=== PATIENT | male | born 1960 | race Caucasian/White ===

== ENCOUNTER 2017-05-16 17:01 | Observation (INO) | payer OTHER ==
[2017-05-16] MEDS ORDERED: DUONEB 0.5-3 MG/3 ml Neb IH ONE (17:31)
[2017-05-16] MEDS: Advair Hfa 230/21 Mcg COMMON CANISTER IH SCH (17:43)
[2017-05-16] MEDS: DUONEB 0.5-3 MG/3 ml Neb IH SCH ×2 (17:43→22:36)
[2017-05-16] MEDS ORDERED: NovoLOG Insulin SQ PRN (19:10)
[2017-05-16] MEDS ORDERED: FEVERALL 650 MG PR PRN (19:10)
[2017-05-16 20:14] LABS: Granulocyte Absolute (ANC) 1.95 (1.4-6.9); Hematocrit 47.2 % (42-50); Hemoglobin 15.1 gm/dl (12.5-18.0); Mean Cell Volume 94.4 fl (78-100); Mean Corpuscular Hemoglobin 30.2 pg (26-32); Mean Platelet Volume 11.3 fl (6-9.5); Platelet Count 101 K/mm3 (150-450); Red Cell Distribution Width 13.8 % (11.5-14.0); White Blood Count 3.9 K/mm3 (4.0-10.5)
[2017-05-16 20:33] LABS: ALBUMIN 3.1 g/dL (3.4-5.0); ALKALINE PHOSPHATASE 57 U/L (46-116); ANION GAP 9.8 MEQ/L (5-15); BLOOD UREA NITROGEN 17 mg/dL (9-20); CHLORIDE 103 mEq/L (98-107); Calcium 8.4 mg/dL (8.5-10.1); Carbon Dioxide 31.3 mEq/L (21-32); Creatinine 1 1.16 mg/dl (0.55-1.30); EST GLOMERULAR FILTRATION RATE > 60 ML/MIN; Glucose 135 MG/DL (70-110); NT PRO BNP 1397 pg/ml (0-125); SGOT/AST 28 U/L (15-37); SGPT/ALT 26 U/L (12-78); SODIUM 140 mEq/L (136-145); Total Protein 7.3 gm/dL (6.4-8.2)
[2017-05-16 20:39] LABS: ATYPICAL LYMPHS 1 %; BAND 5 % (0.0-2.0); Lymphocytes 27 % (24-44); Monocyte 10 % (0.0-12.0); Neutrophils 57 % (36.-66.); Platelet Estimate NORMAL (NORMAL); Total Cells Counted 100
[2017-05-16] MEDS: Sodium Chloride 0.9% 1000 ML 1,000 ML IV SCH (20:40)
[2017-05-16] MEDS: Cozaar 50 MG PO SCH (22:30)
[2017-05-16] MEDS: Lopressor 50 MG PO SCH (22:30)
[2017-05-17] MEDS: DUONEB 0.5-3 MG/3 ml Neb IH SCH ×6 (02:53→22:57)
[2017-05-17] MEDS: Sodium Chloride 0.9% 1000 ML 1,000 ML IV SCH (05:46)
[2017-05-17] MEDS: Advair Hfa 230/21 Mcg COMMON CANISTER IH SCH ×2 (06:37→19:03)
--- NOTE | 2017-05-17 08:43 | XRAY ---
Indication: Short of breath. Comparison: June 07, 2014. PA/lateral chest does not completely include both lung bases. No focal infiltrate, consolidation, or large effusion. Heart remains enlarged. Bony thorax intact again with mild osteopenia and degenerative changes. Impression: Nonacute hyperinflated limited chest again with chronic features.
--- NOTE | 2017-05-17 09:11 | PCM.NOTE ---
Date and Time: 05/17/17907 Subjective Assessment: still short of breath - Review of Systems Constitutional: No Fever, No Chills Eyes: No Symptoms Ears, Nose, & Throat: No Symptoms Respiratory: Orthopnea, Short Of Breath, No Cough Cardiac: No Chest Pain, No Edema, No Syncope Abdominal/Gastrointestinal: No Abdominal Pain, No Nausea, No Vomiting, No Diarrhea Genitourinary Symptoms: No Dysuria Musculoskeletal: No Back Pain, No Neck Pain Skin: No Rash Neurological: No Dizziness, No Focal Weakness, No Sensory Changes Psychological: No Symptoms Endocrine: No Symptoms Hematologic/Lymphatic: No Symptoms Immunological/Allergic: No Symptoms Objective Exam General Appearance: mild distress, alert Neurologic Exam: alert, oriented x 3, cooperative, normal mood/affect, nml cerebellar function, sensation nml, No motor deficits Skin Exam: normal color, warm, dry Eye Exam: PERRL, EOMI, eyes nml inspection Ears, Nose, Throat Exam: normal ENT inspection, pharynx normal, moist mucous membranes Neck Exam: normal inspection, non-tender, supple, full range of motion Respiratory Exam: diminished breath sounds, crackles/rales, rhonchi, No respiratory distress Cardiovascular Exam: regular rate/rhythm, normal heart sounds Gastrointestinal/Abdomen Exam: soft, No tenderness, No mass Extremity Exam: normal inspection, normal range of motion Back Exam: normal inspection, normal range of motion, No CVA tenderness, No vertebral tenderness Male Genitalia Exam: deferred Rectal Exam: deferred OBJECTIVE DATA Vital Signs: Vital Signs - 24 hr Temp Pulse Resp BP Pulse Ox 05/17/17 07:32 98 F 122 H 22 110/70 97 05/17/17 06:35 130 H 26 H 97 05/17/17 06:00 22 05/17/17 04:00 97.7 F 98 H 23 106/83 94 L 05/17/17 02:53 98 H 23 94 L 05/17/17 02:00 20 05/17/17 00:00 98.3 F 79 28 H 130/78 94 L 05/16/17 22:36 99 H 18 96 05/16/17 22:00 24 05/16/17 20:00 98.0 F 72 28 H 142/89 97 05/16/17 18:21 26 H 05/16/17 17:54 97.7 F 104 H 26 H 161/118 94 L 05/16/17 17:44 104 H 26 H 94 L 05/16/17 17:37 97.7 F 106 H 24 161/118 94 L Oxygen-Last 24 hours O2 Percentage 2 Liters = 28% O2 Percentage 2 Liters = 28% Pain Assessment - Last Documented Pain Intensity 0 Pain Scale Used 0-10 Pain Scale Intake and Output: Intake & Output 05/14/17 05/15/17 05/16/17 05/17/17 11:59 11:59 11:59 11:59 Intake Total 2601 Balance 2601 Weight 176.6 kg Lab Results: Accuchecks Date 05/15/17 Time 22:00 Accucheck Value: 120 Lab Results-Last 24 Hours 05/16/17 05/16/17 Range/Units 19:51 19:51 WBC 3.9 L (4.0-10.5) K/mm3 RBC 5.00 (4.1-5.6) M/mm3 Hgb 15.1 (12.5-18.0) gm/dl Hct 47.2 (42-50) % MCV 94.4 (78-100) fl MCH 30.2 (26-32) pg MCHC 32.0 (32-36) g/dl RDW 13.8 (11.5-14.0) % Plt Count 101 L (150-450) K/mm3 MPV 11.3 H (6-9.5) fl Segmented Neutrophils 57 (36.-66.) % Band Neutrophils 5 H (0.0-2.0) % Lymphocytes (Manual) 27 (24-44) % Monocytes (Manual) 10 (0.0-12.0) % Differential Comment NORMAL Atypical Lymphocytes 1 % Platelet Estimate NORMAL (NORMAL) Sodium 140 (136-145) mEq/L Potassium 4.0 (3.5-5.1) mEq/L Chloride 103 (98-107) mEq/L Carbon Dioxide 31.3 (21-32) mEq/L Anion Gap 9.8 (5-15) MEQ/L BUN 17 (9-20) mg/dL Creatinine 1.16 (0.55-1.30) mg/dl Estimated GFR > 60 ML/MIN Glucose 135 H (70-110) MG/DL Calcium 8.4 L (8.5-10.1) mg/dL Total Bilirubin 0.40 (0.2-1.0) mg/dL AST 28 (15-37) U/L ALT 26 (12-78) U/L Alkaline Phosphatase 57 (46-116) U/L NT-Pro-B Natriuret Pep 1397 H (0-125) pg/ml Serum Total Protein 7.3 (6.4-8.2) gm/dL Albumin 3.1 L (3.4-5.0) g/dL Radiology Exams: Radiology Procedures Category Date Time Status CHEST 2 VIEWS (PA AND LAT) Stat Exams 05/16/17 19:25 Completed Assessment/Plan (1) CHF (congestive heart failure) Current Visit: Yes Status: Acute Qualifiers: Congestive heart failure type: combined Congestive heart failure chronicity : acute on chronic Qualified Code(s): I50.43 - Acute on chronic combined systolic (congestive) and diastolic (congestive) heart failure Code(s): I50.9 - HEART FAILURE, UNSPECIFIED (2) COPD (chronic obstructive pulmonary disease) Current Visit: Yes Status: Acute Qualifiers: COPD type: COPD with acute exacerbation Qualified Code(s): J44.1 - Chronic obstructive pulmonary disease with (acute) exacerbation
[2017-05-17] MEDS: DEMADEX 20 MG PO SCH (09:19)
[2017-05-17] MEDS: XARELTO 10 MG TABLET PO SCH (09:19)
[2017-05-17] MEDS: Cozaar 50 MG PO SCH ×2 (09:20→23:17)
[2017-05-17] MEDS: Lopressor 50 MG PO SCH ×2 (09:20→23:17)
[2017-05-17] MEDS ORDERED: Sodium Chloride 0.9% 1000 ML 1,000 ML IV SCH (11:15)
[2017-05-18] MEDS: DUONEB 0.5-3 MG/3 ml Neb IH SCH ×3 (03:18→10:14)
[2017-05-18] MEDS: Advair Hfa 230/21 Mcg COMMON CANISTER IH SCH (06:45)
[2017-05-18] MEDS: XARELTO 10 MG TABLET PO SCH (11:08)
[2017-05-18] MEDS: Lopressor 50 MG PO SCH (11:08)
[2017-05-18] MEDS: DEMADEX 20 MG PO SCH (11:09)
[2017-05-18] MEDS: Cozaar 50 MG PO SCH (11:09)
[2017-05-18 11:22] VITALS: BP 122/68; PULSE 135; O2SAT 92
--- NOTE | 2017-05-18 12:15 | PCM.NOTE ---
Date and Time: 05/18/17 1215 Subjective Assessment: doing better - Review of Systems Constitutional: No Fever, No Chills Eyes: No Symptoms Ears, Nose, & Throat: No Symptoms Respiratory: No Cough, No Short Of Breath Cardiac: No Chest Pain, No Edema, No Syncope Abdominal/Gastrointestinal: No Abdominal Pain, No Nausea, No Vomiting, No Diarrhea Genitourinary Symptoms: No Dysuria Musculoskeletal: No Back Pain, No Neck Pain Skin: No Rash Neurological: No Dizziness, No Focal Weakness, No Sensory Changes Psychological: No Symptoms Endocrine: No Symptoms Hematologic/Lymphatic: No Symptoms Immunological/Allergic: No Symptoms Objective Exam General Appearance: no apparent distress, alert Neurologic Exam: alert, oriented x 3, cooperative, normal mood/affect, nml cerebellar function, sensation nml, No motor deficits Skin Exam: normal color, warm, dry Eye Exam: PERRL, EOMI, eyes nml inspection Ears, Nose, Throat Exam: normal ENT inspection, pharynx normal, moist mucous membranes Neck Exam: normal inspection, non-tender, supple, full range of motion Respiratory Exam: diminished breath sounds, No respiratory distress Cardiovascular Exam: regular rate/rhythm, normal heart sounds Gastrointestinal/Abdomen Exam: soft, No tenderness, No mass Extremity Exam: normal inspection, normal range of motion Back Exam: normal inspection, normal range of motion, No CVA tenderness, No vertebral tenderness Male Genitalia Exam: deferred Rectal Exam: deferred OBJECTIVE DATA Vital Signs: Vital Signs - 24 hr Temp Pulse Resp BP Pulse Ox 05/18/17 11:21 98.5 F 135 H 20 122/68 92 L 05/18/17 10:17 120 H 18 95 05/18/17 10:00 20 05/18/17 07:19 97.9 F 125 H 20 128/68 92 L 05/18/17 06:48 68 18 95 05/18/17 06:00 20 05/18/17 03:43 98.2 F 128 H 20 120/70 94 L 05/18/17 03:18 128 H 20 94 L 05/18/17 02:00 18 05/18/17 00:00 98.2 F 114 H 18 132/73 96 05/17/17 22:57 114 H 18 96 05/17/17 22:00 18 05/17/17 20:00 98.3 F 104 H 28 H 128/94 91 L 05/17/17 19:02 108 H 18 96 05/17/17 18:00 18 05/17/17 16:07 97.8 F 85 22 140/64 93 L 05/17/17 15:00 103 H 20 93 L 05/17/17 13:34 30 H Pain Assessment - Last Documented Pain Intensity 0 Pain Scale Used 0-10 Pain Scale Intake and Output: Intake & Output 05/16/17 05/17/17 05/18/17 05/19/17 11:59 11:59 11:59 11:59 Intake Total 2961 4852 Output Total 400 600 Balance 2561 4252 Weight 176.6 kg Lab Results: Accuchecks Date 05/18/17 Date 05/18/17 Date 05/17/17 Time 08:15 Time 22:00 Time 16:30 Accucheck Value: 93 Accucheck Value: 109 Accucheck Value: 98 Radiology Exams: Radiology Procedures Category Date Time Status CHEST 2 VIEWS (PA AND LAT) Stat Exams 05/16/17 19:25 Completed ECHO W/2D AND DOPPLER [US] Routine Exams 05/17/17 11:12 Taken Assessment/Plan (1) CHF (congestive heart failure) Current Visit: Yes Status: Acute Qualifiers: Congestive heart failure type: combined Congestive heart failure chronicity : acute on chronic Qualified Code(s): I50.43 - Acute on chronic combined systolic (congestive) and diastolic (congestive) heart failure Code(s): I50.9 - HEART FAILURE, UNSPECIFIED (2) COPD (chronic obstructive pulmonary disease) Current Visit: Yes Status: Acute Qualifiers: COPD type: COPD with acute exacerbation Qualified Code(s): J44.1 - Chronic obstructive pulmonary disease with (acute) exacerbation
--- NOTE | 2017-05-18 12:27 | PCM.DCORD ---
- Discharge Discharge Date: 05/18/17 Disposition: Home, Self-Care Condition: Stable Prescriptions: Continue Rivaroxaban 10 mg Tablet [Xarelto 10 mg Tablet] 15 mg PO DAILY Metoprolol Tartrate 50 mg [Lopressor 50 MG] 50 mg PO BID Losartan Potassium 50 mg [Cozaar 50 MG] 50 mg PO BID Budesonide/Formoterol Fumarate [Symbicort 160-4.5 Mcg Inhaler] 6 gm IH BID Changed Torsemide 20 mg [Demadex 20 mg] 40 mg PO DAILY #0 Follow up with: MIHIR PALACIOS MD [Primary Care Provider] - 1 Week
--- NOTE | 2017-05-20 13:24 | ECHO ---
DATE OF PROCEDURE: 05/17/2017 CLINICAL INFORMATION: Congestive heart failure, shortness of breath. The M-mode 2D, and Doppler echocardiogram including color flow Doppler is a technically difficult study. The left ventricle is normal in size with a dimension of 1.2 cm. The septal wall thickness is increased at 2.2 cm. Left ventricular posterior wall thickness is increased at 1.7 cm. The left ventricular apex is not well visualized. The right ventricle is not well visualized. The left atrium is dilated at 4.6 cm. The interatrial septum is intact. The right atrium is not well visualized. The aortic valve is calcified. Leaflet motion is decreased. There is probably some element of stenosis. There is a trace amount of mitral regurgitation present. There is mild tricuspid regurgitation. The right ventricular systolic pressure is elevated at 37 mm of Mercury consistent with mild pulmonary hypertension. There is evidence of probable trace amount of aortic regurgitation present. The pulmonic valve is not well visualized. The aortic root is normal at 3.4 cm. There is no pericardial present. IMPRESSION: 1) LOW NORMAL LEFT VENTRICULAR SYSTOLIC FUNCTION WITH AN EJECTION FRACTION CALCULATED TO BE 52%. 2) THERE IS SEVERE ASYMMETRIC LEFT VENTRICULAR HYPERTROPHY. 3) THERE IS MILD LEFT ATRIAL DILATATION. 4) THERE IS AORTIC VALVULAR CALCIFICATION WITH SOME DEGREE OF STENOSIS. 5) TRACE AMOUNT OF MITRAL REGURGITATION PRESENT. 6) THERE IS MILD TRICUSPID REGURGITATION. 7) THERE IS MILD PULMONARY HYPERTENSION.
== END 2017-05-18 13:35 | disposition home or self-care (01) ==
LOC: MED SURG 17:17
PROVIDERS: ADMIT General Practice; ATTEND General Practice
DX: I50.43 Acute on chronic combined systolic (congestive) and diastolic (congestive) heart failure (principal); J44.1 Chronic obstructive pulmonary disease with (acute) exacerbation
CPT/HCPCS: 36415; 71046; 80053; 82962; 83880; 85025; 93005; 93306; 94640; 94760; G0378; A9270-GY

== ENCOUNTER 2017-12-20 11:18 | Observation (INO) | payer OTHER ==
[2017-12-20] MEDS ORDERED: Colace 100 MG PO PRN (11:52)
[2017-12-20] MEDS ORDERED: TYLENOL 325 MG PO PRN (11:52)
[2017-12-20] MEDS ORDERED: Sodium Chloride 0.9% 1000 ML 1,000 ML IV SCH (12:00)
[2017-12-20] MEDS: DUONEB 0.5-3 MG/3 ml Neb IH SCH ×2 (12:27→19:16)
[2017-12-20] MEDS: ROCEPHIN 1 Gm-D5w 50 ml Bag** 1 G/50 ML IVPB IV SCH (12:53)
[2017-12-20] MEDS ORDERED: ENOXAPARIN SODIUM SQ SCH (13:00)
[2017-12-20 13:04] LABS: BASOPHIL % 0.3 % (0.0-0.4); Basophil (Absolute #) 0.02 (0-0.4); Eosinophil (Absolute #) 0.06 (0-0.5); Hematocrit 44.7 % (42-50); Hemoglobin 14.5 gm/dl (12.5-18.0); Lymphocyte (Absolute #) 1.25 (1.0-4.6); Lymphocytes % 21.6 % (24.0-44.0); Mean Cell Volume 94.1 fl (78-100); Mean Corpuscular Hemoglobin 30.5 pg (26-32); Mean Corpuscular Hgb Concent. 32.4 g/dl (32-36); Monocyte (Absolute #) 0.76 (0.0-1.3); Monocytes % 13.1 % (0.0-12.0); Platelet Count 136 K/mm3 (150-450); Red Blood Count 4.75 M/mm3 (4.1-5.6); Red Cell Distribution Width 16.6 % (11.5-14.0); White Blood Count 5.8 K/mm3 (4.0-10.5)
--- NOTE | 2017-12-20 13:11 | XRAY ---
Indication: Short of breath. Comparison: May 16, 2017. PA/lateral chest obtained. Lateral view limited due to patient body habitus and respiration artifact. No focal infiltrate, consolidation, or large effusion. Heart remains enlarged. Bony thorax intact. Impression: Nonacute limited chest with stable cardiomegaly.
[2017-12-20 13:42] LABS: ALBUMIN 3.7 g/dL (3.5-5.0); ANION GAP 14.3 MEQ/L (5-15); BILIRUBIN,TOTAL 1.3 mg/dL (0.2-1.3); Calcium 8.5 mg/dL (8.4-10.2); Creatinine 1 1.68 mg/dL (0.66-1.25); Potassium 3.9 mmol/L (3.5-5.1); TROPONIN 0.022 ng/mL (0.000-0.034); Total Protein 7.1 g/dL (6.3-8.2)
[2017-12-20] MEDS: Zithromax 500 MG/ 250 ML NaCl Premix 500 MG/250 ML IVPB IV SCH (13:44)
[2017-12-20] MEDS: XARELTO 10 MG TABLET PO SCH ×2 (18:51→18:55)
[2017-12-20] MEDS: Lopressor 50 MG PO SCH (22:57)
[2017-12-20] MEDS: Cozaar 50 MG PO SCH (22:57)
[2017-12-21] MEDS: DUONEB 0.5-3 MG/3 ml Neb IH SCH ×4 (01:02→19:25)
[2017-12-21] MEDS: ROCEPHIN 1 Gm-D5w 50 ml Bag** 1 G/50 ML IVPB IV SCH (09:09)
[2017-12-21] MEDS: Zithromax 500 MG/ 250 ML NaCl Premix 500 MG/250 ML IVPB IV SCH (09:09)
[2017-12-21] MEDS: Cozaar 50 MG PO SCH ×2 (09:10→22:21)
[2017-12-21] MEDS: Lopressor 50 MG PO SCH ×2 (09:10→22:21)
[2017-12-21] MEDS ORDERED: DEMADEX 20 MG PO SCH (10:00)
--- NOTE | 2017-12-21 11:23 | PCM.NOTE ---
Date and Time: 12/21/17 1122 Subjective Assessment: doing ok - Review of Systems Constitutional: No Fever, No Chills Eyes: No Symptoms Ears, Nose, & Throat: No Symptoms Respiratory: No Cough, No Short Of Breath Cardiac: No Chest Pain, No Edema, No Syncope Abdominal/Gastrointestinal: No Abdominal Pain, No Nausea, No Vomiting, No Diarrhea Genitourinary Symptoms: No Dysuria Musculoskeletal: No Back Pain, No Neck Pain Skin: No Rash Neurological: No Dizziness, No Focal Weakness, No Sensory Changes Psychological: No Symptoms Endocrine: No Symptoms Hematologic/Lymphatic: No Symptoms Immunological/Allergic: No Symptoms Objective Exam General Appearance: no apparent distress, alert Neurologic Exam: alert, oriented x 3, cooperative, normal mood/affect, nml cerebellar function, sensation nml, No motor deficits Skin Exam: normal color, warm, dry Eye Exam: PERRL, EOMI, eyes nml inspection Ears, Nose, Throat Exam: normal ENT inspection, pharynx normal, moist mucous membranes Neck Exam: normal inspection, non-tender, supple, full range of motion Respiratory Exam: normal breath sounds, lungs clear, No respiratory distress Cardiovascular Exam: regular rate/rhythm, normal heart sounds Gastrointestinal/Abdomen Exam: soft, No tenderness, No mass Extremity Exam: normal inspection, normal range of motion Back Exam: normal inspection, normal range of motion, No CVA tenderness, No vertebral tenderness Male Genitalia Exam: deferred Rectal Exam: deferred OBJECTIVE DATA Vital Signs: Vital Signs - 24 hr Temp Pulse Resp BP Pulse Ox 12/21/17 07:22 98.2 F 79 18 112/74 97 12/21/17 06:58 86 20 95 12/21/17 04:00 97.9 F 75 19 100/55 93 L 12/21/17 01:02 70 20 98 12/21/17 00:00 98.6 F 91 H 19 115/71 96 12/20/17 20:00 98.0 F 87 19 116/65 96 12/20/17 19:24 82 20 98 12/20/17 16:00 98.5 F 83 18 126/72 95 12/20/17 13:03 98.5 F 89 22 123/67 95 12/20/17 12:27 89 22 95 12/20/17 11:54 98.5 F 95 H 18 123/67 95 12/20/17 11:53 98.5 F 95 H 18 123/67 95 12/20/17 11:52 95 Oxygen-Last 24 hours Oxygen Flowrate (L/min)-RT 2 Pain Assessment - Last Documented Pain Intensity [address] [facility] Intake and Output: Intake & Output 12/18/17 12/19/17 12/20/17 12/21/17 11:59 11:59 11:59 11:59 Intake Total 1905 Output Total 400 Balance 1505 Weight 199.9 kg 189.9 kg Lab Results: Lab Results-Last 24 Hours 12/20/17 12/20/17 Range/Units 13:00 13:00 WBC 5.8 (4.0-10.5) K/mm3 RBC 4.75 (4.1-5.6) M/mm3 Hgb 14.5 (12.5-18.0) gm/dl Hct 44.7 (42-50) % MCV 94.1 (78-100) fl MCH 30.5 (26-32) pg MCHC 32.4 (32-36) g/dl RDW 16.6 H (11.5-14.0) % Plt Count 136 L (150-450) K/mm3 MPV 11.0 H (6-9.5) fl Gran % 64.0 (36.0-66.0) % Eos # (Auto) 0.06 (0-0.5) Absolute Lymphs (auto) 1.25 (1.0-4.6) Absolute Monos (auto) 0.76 (0.0-1.3) Lymphocytes % 21.6 L (24.0-44.0) % Monocytes % 13.1 H (0.0-12.0) % Eosinophils % 1.0 (0.00-5.0) % Basophils % 0.3 (0.0-0.4) % Absolute Granulocytes 3.70 (1.4-6.9) Basophils # 0.02 (0-0.4) Sodium 140 (137-145) mmol/L Potassium 3.9 (3.5-5.1) mmol/L Chloride 102 (98-107) mmol/L Carbon Dioxide 27 (22-30) mmol/L Anion Gap 14.3 (5-15) MEQ/L BUN 36 H (9-20) mg/dL Creatinine 1.68 H (0.66-1.25) mg/dL Estimated GFR 44.7 ML/MIN Glucose 111 H (74-106) mg/dL Calcium 8.5 (8.4-10.2) mg/dL Total Bilirubin 1.30 (0.2-1.3) mg/dL AST 24 (17-59) U/L ALT 19 (0-50) U/L Alkaline Phosphatase 64 (38-126) U/L Troponin I 0.022 (0.000-0.034) ng/mL NT-Pro-B Natriuret Pep 2020 H (0-900) pg/mL Serum Total Protein 7.1 (6.3-8.2) g/dL Albumin 3.7 (3.5-5.0) g/dL Radiology Exams: Radiology Procedures Category Date Time Status CHEST 2 VIEWS (PA AND LAT) Stat Exams 12/20/17 12:21 Completed ECHO W/2D AND DOPPLER [US] Routine Exams 12/20/17 11:52 Taken Multi-Disciplinary Progress Notes: Multi-Disciplinary Progress Notes 12/20/17 13:05 Case Management Note by Mendy Gibbs OBTAINED FOR ECHO FOR CHF AUTH # [id number] Initialized on 12/20/17 13:05 - END OF NOTE Assessment/Plan (1) CHF (congestive heart failure) Current Visit: Yes Status: Acute Onset Date: ~12/20/17 Qualifiers: Heart failure type: combined systolic and diastolic Heart failure chronicity: acute on chronic Qualified Code(s): I50.43 - Acute on chronic combined systolic (congestive) and diastolic (congestive) heart failure Code(s): I50.9 - HEART FAILURE, UNSPECIFIED (2) COPD exacerbation Current Visit: Yes Status: Acute Onset Date: ~12/20/17 Code(s): J44.1 - CHRONIC OBSTRUCTIVE PULMONARY DISEASE W (ACUTE) EXACERBATION (3) COPD (chronic obstructive pulmonary disease) Current Visit: No Status: Acute Qualifiers: (4) Super obesity Current Visit: No Status: Chronic Onset Date: ~12/20/17 Code(s): E66.9 - OBESITY, UNSPECIFIED
[2017-12-21] MEDS: XARELTO 10 MG TABLET PO SCH (17:41)
[2017-12-22] MEDS: DUONEB 0.5-3 MG/3 ml Neb IH SCH ×4 (00:42→19:28)
[2017-12-22] MEDS: BUMEX 1 MG IV SCH ×2 (09:55→22:29)
[2017-12-22] MEDS: Lopressor 50 MG PO SCH ×2 (09:55→22:29)
[2017-12-22] MEDS: Cozaar 50 MG PO SCH ×2 (09:55→22:29)
[2017-12-22] MEDS: ROCEPHIN 1 Gm-D5w 50 ml Bag** 1 G/50 ML IVPB IV SCH (09:55)
[2017-12-22] MEDS: Zithromax 500 MG/ 250 ML NaCl Premix 500 MG/250 ML IVPB IV SCH (09:55)
--- NOTE | 2017-12-22 11:48 | CONS ---
CONSULT DATE: 12/22/2017 REASON FOR CONSULTATION: Evaluation of shortness of breath, possible sleep apnea, nocturnal saturation. HISTORY: Kaz Alvarez is a 57 year-old morbidly obese male who has been admitted with leg swelling and reduced effort tolerance. The patient reports that he had been diagnosed with sleep apnea in 2014. It is unclear if the patient has trouble using CPAP. However last night he was given a trial of Maria full-face mask that he tolerated very well. The patient's overnight pulse oximetry did show significant desaturation of 45 minutes below 90%. The patient has symptoms suggestive of obstructive sleep apnea. He has orthopnea as well. The patient also reports underlying history of obstructive sleep apnea and cor pulmonale. He has been on diuretic therapy. PAST MEDICAL HISTORY: Positive for chronic obstructive pulmonary disease, obesity, hypertension, cor pulmonale. PAST SURGICAL HISTORY: No recent surgery. PERSONAL AND SOCIAL HISTORY: A former smoker. MEDICATIONS: Medications are reviewed. ALLERGIES: PENICILLIN. ALLERGIES NOTED. PHYSICAL EXAMINATION: This is a middle aged male who appears comfortable in a chair. Vital signs are noted. HEENT: Normocephalic. Oral exam shows very small oropharynx. NECK: Short and supple. CVS: First and second heart sounds are normal, regular, rhythmic. RESPIRATORY: Shows diminished breath sounds. Clear to auscultation. ABDOMEN: Obese. EXTREMITIES: Lower extremities show 3+ leg edema. LABORATORY DATA AND TESTS: Labs reviewed. BUN 36, creatinine 1.7. BNP 2020. Chest x-ray showed nonacute chest with cardiomegaly. Echo was done and results are pending. ASSESSMENT: This is a 57 year old male admitted with symptoms strongly suggestive of: 1) Underlying obstructive sleep apnea. 2) Nocturnal desaturation secondary to above. 3) Likely cor pulmonale and echo awaited. 4) Total body water excess. 5) Renal insufficiency. 6) Morbid obesity. 7) Hypertension. RECOMMENDATIONS: I agree with current treatment, continue Bumex. I will hold off on Zaroxolyn given creatinine of 1.6. Monitor intake and output strictly with maintaining at least 500 to 1,000 cc of negative output. Continue anticoagulation which will also protect for deep venous thrombosis given the patient's body habitus and reduced mobility. He will benefit from polysomnography and noninvasive ventilation upon discharge. I discussed with respiratory therapy to arrange further follow up after polysomnography in outpatient setting. Thank you for allowing me to participate in the care of Kaz Shay.
--- NOTE | 2017-12-22 15:29 | ECHO ---
Transthoracic echocardiographic examination and color Doppler was done on 12/20/2017. INDICATION: Shortness of breath. The study was somewhat limited because of a limited acoustic window. The left ventricle was only partially visualized but this demonstrated moderate left ventricular hypokinesia. Ejection fraction is calculated to be 30-40%. The left atrium appears to be enlarged. The aortic valve and mitral valve were both sclerotic. There is a peak systolic gradient of 35 mm of Mercury across the aortic valve. There is also trace mitral regurgitation. There is trace tricuspid regurgitation. The right ventricular systolic pressure of 20 mm of Mercury. Tissue Doppler study is suggestive of a left ventricular diastolic dysfunction.
[2017-12-22] MEDS: XARELTO 10 MG TABLET PO SCH (17:39)
--- NOTE | 2017-12-22 21:34 | PCM.NOTE ---
Date and Time: 12/22/172131 Subjective Assessment: still very short of breath, pulmonary consult appreciated - Review of Systems Constitutional: No Fever, No Chills Eyes: No Symptoms Ears, Nose, & Throat: No Symptoms Respiratory: Orthopnea, Short Of Breath, Wheezing, No Cough Cardiac: Edema, Orthopnea, No Chest Pain, No Syncope Abdominal/Gastrointestinal: No Abdominal Pain, No Nausea, No Vomiting, No Diarrhea Genitourinary Symptoms: No Dysuria Musculoskeletal: No Back Pain, No Neck Pain Skin: No Rash Neurological: No Dizziness, No Focal Weakness, No Sensory Changes Psychological: No Symptoms Endocrine: No Symptoms Hematologic/Lymphatic: No Symptoms Immunological/Allergic: No Symptoms Objective Exam General Appearance: no apparent distress, alert Neurologic Exam: alert, oriented x 3, cooperative, normal mood/affect, nml cerebellar function, sensation nml, No motor deficits Skin Exam: normal color, warm, dry Eye Exam: PERRL, EOMI, eyes nml inspection Ears, Nose, Throat Exam: normal ENT inspection, pharynx normal, moist mucous membranes Neck Exam: normal inspection, non-tender, supple, full range of motion Respiratory Exam: crackles/rales, rhonchi, No respiratory distress Cardiovascular Exam: regular rate/rhythm, normal heart sounds, capillary refill >3 sec, edema Gastrointestinal/Abdomen Exam: soft, No tenderness, No mass Extremity Exam: normal inspection, normal range of motion Back Exam: normal inspection, normal range of motion, No CVA tenderness, No vertebral tenderness Male Genitalia Exam: deferred Rectal Exam: deferred OBJECTIVE DATA Vital Signs: Vital Signs - 24 hr Temp Pulse Resp BP Pulse Ox 12/22/17 21:30 91 H 22 97 12/22/17 20:00 98.4 F 90 20 114/67 96 12/22/17 16:00 98.6 F 92 H 20 112/60 97 12/22/17 13:53 84 20 94 L 12/22/17 12:00 20 12/22/17 11:32 98.8 F 84 20 92/65 93 L 12/22/17 08:00 20 12/22/17 07:23 98.6 F 81 20 110/62 99 12/22/17 06:58 84 20 91 L 12/22/17 04:00 16 12/22/17 03:37 98.0 F 88 16 108/80 97 12/22/17 00:42 80 20 95 12/22/17 00:00 97.5 F 94 H 20 118/82 95 Pain Assessment - Last Documented Pain Intensity 3 Pain Scale Used 0-10 Pain Scale Intake and Output: Intake & Output 12/20/17 12/21/17 12/22/17 12/23/17 11:59 11:59 11:59 11:59 Intake Total 1905 2332 960 Output Total 400 3050 400 Balance 1505 -718 560 Weight 199.9 kg 189.9 kg 189.6 kg Multi-Disciplinary Progress Notes: Multi-Disciplinary Progress Notes 12/22/17 12:20 (created 12/22/17 15:09) Case Management Note by Elma Smalls DR. ROUNDED AND EVALUATED, DISCUSSED DX/TREATMENT WITH PT. PT VERBALIZED UNDERSTANDING AND ABLE TO REPEAT INFORMATION BACK. DR. PALACIOS REPORTS THAT PT WILL LIKELY REQUIRE ANOTHER 1-2 DAYS TREATMENT. PT DENIES ADDNL NEEDS AT PRESENT. REPORTS THAT HE PLANS TO RETURN HOME WITH TO PRE EPISODIC LEVEL OF FNX. Initialized on 12/22/17 15:09 - END OF NOTE 12/22/17 09:50 (created 12/22/17 15:07) Case Management Note by Elma Smalls DR. ROUNDED AND EVALUATED. DISCUSSED TREATMENT PLAN WITH PT. Initialized on 12/22/17 15:07 - END OF NOTE Assessment/Plan (1) CHF (congestive heart failure) Current Visit: Yes Status: Acute Onset Date: ~12/20/17 Qualifiers: Heart failure type: combined systolic and diastolic Heart failure chronicity: acute on chronic Qualified Code(s): I50.43 - Acute on chronic combined systolic (congestive) and diastolic (congestive) heart failure Assessment & Plan: Chief Complaint Diagnosis EXAC COPD, EXAC CHF, FAILED OUTPATIENT Allergies Allergy/AdvReac Type Severity Reaction Status Date / Time Penicillins Allergy Verified 12/20/17 12:34 Vital Signs (Last 24 hours) Temp Pulse Resp BP Pulse Ox 12/22/17 21:30 91 H 22 97 12/22/17 20:00 98.4 F 90 20 114/67 96 12/22/17 16:00 98.6 F 92 H 20 112/60 97 12/22/17 13:53 84 20 94 L 12/22/17 12:00 20 12/22/17 11:32 98.8 F 84 20 92/65 93 L 12/22/17 08:00 20 12/22/17 07:23 98.6 F 81 20 110/62 99 12/22/17 06:58 84 20 91 L 12/22/17 04:00 16 12/22/17 03:37 98.0 F 88 16 108/80 97 12/22/17 00:42 80 20 95 12/22/17 00:00 97.5 F 94 H 20 118/82 95 Home Medications Medication Instructions Recorded Confirmed Last Taken Type Albuterol 2.5 mg/3 ml Neb 1 neb IH Q4HPRN PRN 12/20/17 12/20/17 Unknown History [Proventil 2.5 mg/3 ml Neb] Current Medications Generic Name Dose Route Start Last Admin Trade Name Freq PRN Reason Stop Dose Admin Acetaminophen 325 mg 12/20/17 11:52 Tylenol 325 Mg PO 01/19/18 11:51 Q4H PRN PRN PAIN, FEVER, HEADACHE Albuterol/Ipratropium 3 ml 12/20/17 13:00 12/22/17 19:28 Duoneb 0.5-3 Mg/3 Ml Neb IH 01/19/18 12:59 3 ml Q6HRT CONY Administration Bumetanide 1 mg 12/22/17 10:00 12/22/17 09:55 Bumex 1 Mg IV 01/21/18 09:59 1 mg Q12HT CONY Administration Docusate Sodium 100 mg 12/20/17 11:52 Colace 100 Mg PO 01/19/18 11:51 BIDPRN PRN CONSTIPATION Azithromycin 500 mg in 250 mls @ 250 mls/hr 12/20/17 13:00 12/22/17 09:55 Zithromax 500 Mg/ 250 Ml Nacl Premix IV 01/19/18 12:59 250 mls/hr Q24H10 CONY Administration Ceftriaxone Sodium/Dextrose 1 g in 50 mls @ 100 mls/hr 12/20/17 13:00 09:55 Rocephin 1 Gm-D5w 50 Ml Bag IV 01/19/18 12:59 100 mls/hr Q24H10 CONY Administration Losartan Potassium 50 mg 12/20/17 22:00 12/22/17 09:55 Cozaar 50 Mg PO 01/19/18 21:59 50 mg BID CONY Administration Metoprolol Tartrate 50 mg 12/20/17 22:00 12/22/17 09:55 Lopressor 50 Mg PO 01/19/18 21:59 50 mg BID CONY Administration Rivaroxaban 20 mg 12/21/17 18:00 12/22/17 17:39 Xarelto 10 Mg Tablet PO 01/20/18 17:59 20 mg DAILY@1800 CONY Administration Discontinued Medications Generic Name Dose Route Start Last Admin Trade Name Freq PRN Reason Stop Dose Admin Enoxaparin Sodium 40 mg 12/20/17 13:00 12/20/17 12:53 Enoxaparin Sodium SQ 01/19/18 12:59 40 mg DAILY CONY Administration Sodium Chloride 1,000 mls @ 50 mls/hr 12/20/17 12:00 12/20/17 12:53 Sodium Chloride 0.9% 1000 Ml IV 01/19/18 11:59 50 mls/hr .Q20H CONY Administration Rivaroxaban 20 mg 12/20/17 18:00 12/20/17 18:55 Xarelto 10 Mg Tablet PO 01/19/18 17:59 20 mg DAILY CONY Administration Torsemide 40 mg 12/21/17 10:00 12/21/17 09:10 Demadex 20 Mg PO 01/20/18 09:59 40 mg DAILY CONY Administration Intake & Output (Last 24 hours) 12/20/17 12/21/17 12/22/17 12/23/17 11:59 11:59 11:59 11:59 Intake Total 1905 2332 960 Output Total 400 3050 400 Balance 1505 -718 560 Weight 199.9 kg 189.9 kg 189.6 kg Orders (Last 24 hours) Category Date Time Status Admission Status Change [Change to Full Admit] ROUTINE Care 12/22/17 09:50 Active Consult Pulmonology ROUTINE Cons 12/22/17 09:00 Active Bumetanide 1 mg [Bumex 1 mg] Med 12/22/17 10:00 Active 1 mg IV Q12HT BiPap/CPAP ROUTINE RT 12/21/17 21:00 Active Sleep Study With 4 or More Par ONCE RT 12/22/17 10:10 Active Patient Care Notes (Last 24 hours) 12/22/17 12:20 (created 12/22/17 15:09) Case Management Note by Elma Smalls DR. ROUNDED AND EVALUATED, DISCUSSED DX/TREATMENT WITH PT. PT VERBALIZED UNDERSTANDING AND ABLE TO REPEAT INFORMATION BACK. DR. PALACIOS REPORTS THAT PT WILL LIKELY REQUIRE ANOTHER 1-2 DAYS TREATMENT. PT DENIES ADDNL NEEDS AT PRESENT. REPORTS THAT HE PLANS TO RETURN HOME WITH TO PRE EPISODIC LEVEL OF FNX. Initialized on 12/22/17 15:09 - END OF NOTE 12/22/17 09:50 (created 12/22/17 15:07) Case Management Note by Elma Smalls DR. ROUNDED AND EVALUATED. DISCUSSED TREATMENT PLAN WITH PT. Initialized on 12/22/17 15:07 - END OF NOTE Code(s): I50.9 - HEART FAILURE, UNSPECIFIED (2) COPD exacerbation Current Visit: Yes Status: Acute Onset Date: ~12/20/17 Code(s): J44.1 - CHRONIC OBSTRUCTIVE PULMONARY DISEASE W (ACUTE) EXACERBATION (3) COPD (chronic obstructive pulmonary disease) Current Visit: No Status: Acute Qualifiers: (4) Super obesity Current Visit: No Status: Chronic Onset Date: ~12/20/17 Code(s): E66.9 - OBESITY, UNSPECIFIED (5) Hypoxia, sleep related Current Visit: Yes Status: Acute Onset Date: ~12/20/17 Code(s): G47.34 - IDIO SLEEP RELATED NONOBSTRUCTIVE ALVEOLAR HYPOVENTILATION
[2017-12-23] MEDS: DUONEB 0.5-3 MG/3 ml Neb IH SCH ×3 (01:01→13:40)
[2017-12-23] MEDS: Zithromax 500 MG/ 250 ML NaCl Premix 500 MG/250 ML IVPB IV SCH (09:33)
[2017-12-23] MEDS: BUMEX 1 MG IV SCH (09:33)
[2017-12-23] MEDS: Cozaar 50 MG PO SCH (09:34)
[2017-12-23] MEDS: Lopressor 50 MG PO SCH (09:34)
[2017-12-23] MEDS: ROCEPHIN 1 Gm-D5w 50 ml Bag** 1 G/50 ML IVPB IV SCH (09:34)
[2017-12-23 16:28] VITALS: BP 119/56; PULSE 120; O2SAT 93
[2017-12-23 17:02] LABS: ANION GAP 16.6 MEQ/L (5-15); BILIRUBIN,TOTAL 0.8 mg/dL (0.2-1.3); Creatinine 1 1.36 mg/dL (0.66-1.25); Potassium 4.3 mmol/L (3.5-5.1); Total Protein 7.6 g/dL (6.3-8.2)
[2017-12-23] MEDS: XARELTO 10 MG TABLET PO SCH (17:58)
--- NOTE | 2017-12-28 10:55 | DS ---
DISCHARGE DIAGNOSES: 1) SHORTNESS OF BREATH, CLINICALLY IMPROVED. 2) CONGESTIVE HEART FAILURE WITH DECOMPENSATION. 3) HYPERTENSION. 4) NOCTURNAL OXYGEN DESATURATION. 5) POSSIBLE SLEEP APNEA. 6) RENAL INSUFFICIENCY. 7) MORBID OBESITY. 8) HISTORY OF PAROXYSMAL ATRIAL FIBRILLATION. 9) HISTORY OF CHRONIC OBSTRUCTIVE PULMONARY DISEASE. HOSPITAL COURSE: Kaz Alvarez is a 57 year-old male with past medical history of hypertension, chronic obstructive pulmonary disease, paroxysmal atrial fibrillation and morbid obesity. He was seen by Dr. Lacy on 12/20/2017 with shortness of breath, swelling of ankles, feet. He was admitted from office for the same. Please refer to Dr. Lacy's notes for details. Lab work up on admission showed unremarkable CBC except PLT of 136,000. CMP was notable for BUN 36, creatinine 1.68. Troponin was 0.022. NT BNP was 2020. EKG showed sinus rhythm at 87 beats/minute, possible interventricular conduction delay, incomplete right bundle branch block. Chest x-ray done this admission showed nonacute chest with cardiomegaly. Pulmonary consultation was requested. The patient's diuretics were changed as per pulmonary recommendations. The patient was also noted to have nocturnal oxygen desaturation for 45 minutes below 90%. Pulmonary consultation was requested. The patient was advised polysomnography as outpatient and advised supplemental oxygen per pulmonary. Also the patient underwent 2D echo on 12/20/2017 which was limited study but did show moderate left ventricular hypokinesia, ejection fraction of 30 to 40%, gradient of 35 mm of Mercury across aortic wall, trace mitral regurgitation, trace tricuspid regurgitation, right ventricular systolic pressure of 20 mm of Mercury, left ventricular diastolic dysfunction. His diuretics were changed per pulmonary recommendation. During his further course he improved clinically. PHYSICAL EXAMINATION: At the time of this evaluation he is alert, awake and comfortable. He states his shortness of breath has improved. Overall he is feeling better and is wishing to go home. VITAL SIGNS: Blood pressure 120/72, heart rate 85, respiratory rate 16, temperature 98.7F. Oxygen saturation 92% on room air. HEENT: No pallor or icterus is noted. NECK: No JVD is present. CVS: S1, S2 present. RESPIRATORY: Breath sounds are bilaterally diminished. ABDOMEN: Morbidly obese, soft, nontender. NEURO: He is alert, oriented x3. EXTREMITIES: Trace edema on bilateral lower extremities. LABORATORY DATA AND TESTS: There were no new labs. Medications were reviewed. ASSESSMENT: As outlined in discharge diagnosis. PLAN: A patient with prior history of hypertension, obesity was admitted with increasing shortness of breath/fluid overload symptoms. He underwent work up and treatment. He was noted to have nocturnal oxygen desaturation and was felt probably to be secondary to underlying possible sleep apnea. The patient was evaluated by pulmonary and has been scheduled for polysomnography as outpatient and the study has been approved by his insurance as per RT therapist. He is to have supplemental oxygen upon discharge and that is being arranged by RT prior to discharge. Additionally the patient's symptoms and the patient's prior diuretics are not working for him, will continue the patient on Bumex at current dose. I advised him to obtain BMP and CBC in one week. I have advised the patient to start discharge medications as directed, follow up for sleep study. Compliance with diet and medications was stressed. I advised him to return to the Emergency Room [facility] if any new signs and symptoms or reappearance of previous signs and symptoms are to appear. The patient's clinical condition, work-up results and plan of management including plan after discharge was discussed with him at length. He seems to be in understanding and agreement. Discussed with patient's nurse. Please refer to the patient's chart, labs, diagnostic work up results and consult notes and discharge medication list from 12/23/2017 for details of medications on discharge.
== END 2017-12-23 19:00 | disposition home or self-care (01) ==
LOC: MED SURG 11:45 → OBSVTOIN 12-22 09:50 → INTOOBSV 12-22 09:50
PROVIDERS: ADMIT General Practice; ATTEND General Practice
DX: R06.02 Shortness of breath (principal); I60.9 Nontraumatic subarachnoid hemorrhage, unspecified; G47.36 Sleep related hypoventilation in conditions classified elsewhere; Z99.81 Dependence on supplemental oxygen; G47.30 Sleep apnea, unspecified; N28.9 Disorder of kidney and ureter, unspecified; E66.01 Morbid (severe) obesity due to excess calories; J44.1 Chronic obstructive pulmonary disease with (acute) exacerbation; I10 Essential (primary) hypertension; I34.0 Nonrheumatic mitral (valve) insufficiency; I07.1 Rheumatic tricuspid insufficiency
CPT/HCPCS: 36415; 71046; 80053; 83735; 83880; 84484; 85025; 93005; 93268; 93306; 94150; 94640; 94660; 94760; 94762; J0456; J0696; J1650; A9270-GY; G0378

== ENCOUNTER 2017-12-25 19:55 | Observation (INO) | payer SELFPAY ==
[2017-12-25] MEDS ORDERED: Cardizem IV 50 MG/10 ML IV ONE ×2 (21:06→21:20)
[2017-12-25] MEDS ORDERED: MORPHINE SULFATE 2 MG INJ IV ONE (21:06)
[2017-12-25] MEDS ORDERED: BABY ASPIRIN 81 MG CHEW PO ONE (21:06)
--- NOTE | 2017-12-25 21:06 | ERPHSYRPT ---
- History of Present Illness Time Seen by Provider: 12/25/17 21:02 Source: patient Exam Limitations: no limitations Patient Subjective Stated Complaint: pt states he has had swelling in his testicles since last week possibly 2 weeks. Triage Nursing Assessment: pt alert and oriented, asnwers questions approp. pt ambulatory with slow steady gait noted. pt short of breath with exertion. exp wheezes heard throughout. swelling noted to bilat lower ext. edema noted to scrotum, grossly enlarged. Physician History: pt was discharged tuesday from CHF and now also has scrotal swelling - no pain but LE edema and his usual CHF; Timing/Duration: today, week(s) Activities at Onset: none Severity of Dyspnea-Max: moderate Severity of Dyspnea-Current: moderate Possible Cause: frequent episodes, chronic episodes Associated Symptoms: cough International travel in last 2 weeks: No Allergies/Adverse Reactions: Penicillins Allergy (Verified 12/25/17 20:31) Home Medications: Losartan Potassium 50 mg [Cozaar 50 MG] 50 mg PO BID 05/16/17 [History] Metoprolol Tartrate 50 mg [Lopressor 50 MG] 50 mg PO BID 05/16/17 [History ] Rivaroxaban 10 mg Tablet [Xarelto 10 mg Tablet] 20 mg PO 1800 05/16/17 [ History] Albuterol 2.5 mg/3 ml Neb [Proventil 2.5 mg/3 ml Neb] 1 neb IH Q4HPRN PRN 12/20/17 [History] Cephalexin Mh 500 mg [Keflex 500 mg] 500 mg PO BID 12/25/17 [History] Hx Tetanus, Diphtheria Vaccination/Date Given: Yes Hx Influenza Vaccination/Date Given: No Hx Pneumococcal Vaccination/Date Given: No Immunizations Up to Date: Yes - Review of Systems Constitutional: No Fever, No Chills Eyes: No Symptoms Ears, Nose, & Throat: No Symptoms Respiratory: Cough, Dyspnea Cardiac: No Chest Pain, No Edema, No Syncope Abdominal/Gastrointestinal: No Abdominal Pain, No Nausea, No Vomiting, No Diarrhea Genitourinary Symptoms: No Dysuria Musculoskeletal: No Back Pain, No Neck Pain Skin: No Rash Neurological: No Dizziness, No Focal Weakness, No Sensory Changes Psychological: No Symptoms Endocrine: No Symptoms All Other Systems: Reviewed and Negative - Past Medical History Pertinent Past Medical History: Yes Neurological History: Other ENT History: No Pertinent History Cardiac History: Arrhythmia, Congestive Heart Failure, Myocardial Infarction (OK ) Respiratory History: COPD Endocrine Medical History: No Pertinent History Musculoskeletal History: No Pertinent History GI Medical History: No Pertinent History History: No Pertinent History, Renal Disease Psycho-Social History: No Pertinent History Male Reproductive Disorders: No Pertinent History Other Medical History: umbilical hernia - Past Surgical History Past Surgical History: No Neuro Surgical History: No Pertinent History Cardiac: No Pertinent History Respiratory: No Pertinent History Gastrointestinal: No Pertinent History Genitourinary: No Pertinent History Musculoskeletal: No Pertinent History Male Surgical History: No Pertinent History - Social History Smoking Status: Former smoker Exposure to second hand smoke: Yes Drug Use: none Patient Lives Alone: No - Nursing Vital Signs Nursing Vital Signs: Initial Vital Signs Temperature 97.6 F 12/25/17 20:16 Pulse Rate 60 12/25/17 20:16 Respiratory Rate 24 12/25/17 20:16 Blood Pressure 143/75 12/25/17 20:16 O2 Sat by Pulse Oximetry 97 12/25/17 20:16 Pain Scale Pain Intensity 0 - Physical Exam General Appearance: mild distress Eye Exam: PERRL/EOMI Neck Exam: normal inspection, supple Respiratory Exam: airway intact, crackles/rales, rhonchi Cardiovascular/Chest Exam: normal heart sounds, gallop Abdominal/Gastrointestinal Exam: soft, No tenderness, No distention, No mass Rectal Exam: deferred Extremity Exam: non-tender, normal range of motion, normal inspection, no calf tenderness, pedal edema, swelling, No calf tenderness, No salomon's sign Peripheral Pulses Exam: carotid (R): 2+, carotid (L): 2+, femoral (R): 2+, femoral (L): 2+, dorsalis-pedis (R): 2+, dorsalis-pedis (L): 2+ Neurologic Exam: alert, oriented x 3, cooperative, 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, sensation nml, No motor deficits Skin Exam: normal color, warm, No dry SpO2 Interpretation: normal SpO2: 98 Oxygen Delivery: Nasal Cannula - Course Nursing assessment & vital signs reviewed: Yes EKG Interpreted by Me: A-fib, NORMAL AXIS, Left Bundle Branch Block, Non- specific ST Changes, Other (similar to previous) - Radiology Exams Chest X-ray Interpretation: Reviewed by me, Other (chf) - Radiology Ultrasound Exam Scrotal Ultrasound: No Torsion/Nml Flow Ordered Tests: Active Orders 24 hr Category Date Time Status Hospital Liaison STAT Care 12/25/17 21:10 Active Clean Catch Urine Specimen STAT Care 12/25/17 21:06 Active EKG-ER Only STAT Care 12/25/17 21:06 Active IV Insertion STAT Care 12/25/17 21:06 Active Pulse Oximetry (ED) STAT Care 12/25/17 21:06 Active CHEST 1 VIEW (PORTABLE) Stat Exams 12/25/17 21:10 Taken TESTICLE [US] Stat Exams 12/25/17 21:13 Taken AMYLASE Stat Lab 12/25/17 21:30 Completed CBC W DIFF Stat Lab 12/25/17 21:30 Completed CK-Creatinine Phosphokinase Stat Lab 12/25/17 21:30 Completed CMP Stat Lab 12/25/17 21:30 Completed CULTURE,URINE Stat Lab 12/25/17 22:39 Received D-DIMER QUANTITATION Stat Lab 12/25/17 21:30 Completed Lactic Acid Stat Lab 12/25/17 21:30 Completed NT PRO BNP Stat Lab 12/25/17 21:30 Completed TROPONIN Q3H Lab 12/25/17 21:30 Completed TROPONIN Q3H Lab 12/26/17 00:15 Ordered TROPONIN Q3H Lab 12/26/17 03:15 Ordered TROPONIN Q3H Lab 12/26/17 06:15 Ordered TROPONIN Q3H Lab 12/26/17 09:15 Ordered UA W/ MICROSCOPIC Stat Lab 12/25/17 22:39 Completed VENOUS BLOOD GAS Urgent Lab 12/25/17 21:30 Completed Medication Summary Generic Name Dose Route Start Last Admin Trade Name Freq PRN Reason Stop Dose Admin Sodium Chloride 1,000 mls @ 50 mls/hr 12/25/17 21:15 12/25/17 21:28 Sodium Chloride 0.9% 1000 Ml IV 01/24/18 21:14 50 mls/hr .Q20H CONY Administration Discontinued Medications Generic Name Dose Route Start Last Admin Trade Name Freq PRN Reason Stop Dose Admin Aspirin 324 mg 12/25/17 21:06 12/25/17 22:47 Baby Aspirin 81 Mg Chew PO 12/25/17 21:07 Not Given STAT ONE Aspirin Confirm 12/25/17 21:18 Baby Aspirin 81 Mg Chew Administered 12/25/17 21:19 Dose 324 mg .ROUTE .STK-MED ONE Bumetanide 2 mg 12/25/17 21:14 12/25/17 21:27 Bumex 1 Mg IV 12/25/17 21:15 2 mg STAT STA Administration Bumetanide Confirm 12/25/17 21:19 Bumex 1 Mg Administered 12/25/17 21:20 Dose 2 mg .ROUTE .STK-MED ONE Diltiazem HCl 10 mg 12/25/17 21:06 12/25/17 21:27 Cardizem Iv 50 Mg/10 Ml IV 12/25/17 21:07 10 mg STAT ONE Administration Diltiazem HCl Confirm 12/25/17 21:20 Cardizem Iv 50 Mg/10 Ml Administered 12/25/17 21:21 Dose 50 mg IV .STK-MED ONE Morphine Sulfate 2 mg 12/25/17 21:06 12/25/17 21:28 Morphine Sulfate 2 Mg Inj IV 12/25/17 21:07 2 mg STAT ONE Administration Morphine Sulfate Confirm 12/25/17 21:19 Morphine Sulfate 2 Mg Inj Administered 12/25/17 21:20 Dose 2 mg .ROUTE .STK-MED ONE Lab/Rad Data: Laboratory Result Diagrams 12/25/17 21:30 12/25/17 21:30 Laboratory Results 12/25/17 12/25/17 12/25/17 Range/Units 22:39 21:30 21:30 WBC (4.0-10.5) K/mm3 RBC (4.1-5.6) M/mm3 Hgb (12.5-18.0) gm/dl Hct (42-50) % MCV (78-100) fl MCH (26-32) pg MCHC (32-36) g/dl RDW (11.5-14.0) % Plt Count (150-450) K/mm3 MPV (6-9.5) fl Gran % (36.0-66.0) % Eos # (Auto) (0-0.5) Absolute Lymphs (auto) (1.0-4.6) Absolute Monos (auto) (0.0-1.3) Lymphocytes % (24.0-44.0) % Monocytes % (0.0-12.0) % Eosinophils % (0.00-5.0) % Basophils % (0.0-0.4) % Absolute Granulocytes (1.4-6.9) Basophils # (0-0.4) D-Dimer (215-500) ng/mL pO2/FiO2 Ratio 30.0 % VBG pH 7.33 (7.32-7.42) VBG pCO2 at Pat Temp 63 H* (42-55) mm/Hg VBG pO2 at Pat Temp 29 (25-40) mm/Hg VBG HCO3 33.2 H* (22-28) meq/L VBG O2 Sat ([place]) 55.6 L (95-100) VBG Base Excess 5.0 H (-2.0-2.0) VBG Hemoglobin 15.3 VBG Carboxyhemoglobin 1.9 (0.0-6.9) % T HGB POC Potassium 4.3 (3.5-5.1) Sodium (137-145) mmol/L Potassium (3.5-5.1) mmol/L Chloride (98-107) mmol/L Carbon Dioxide (22-30) mmol/L Anion Gap (5-15) MEQ/L BUN (9-20) mg/dL Creatinine (0.66-1.25) mg/dL Estimated GFR ML/MIN Glucose (74-106) mg/dL Lactic Acid (0.4-2.0) Calcium (8.4-10.2) mg/dL Total Bilirubin (0.2-1.3) mg/dL AST (17-59) U/L ALT (0-50) U/L Alkaline Phosphatase (38-126) U/L Creatine Kinase (55-170) U/L Troponin I 0.015 (0.000-0.034) ng/mL NT-Pro-B Natriuret Pep (0-900) pg/mL Serum Total Protein (6.3-8.2) g/dL Albumin (3.5-5.0) g/dL Amylase (30-110) U/L Ur Collection Type VOID Urine Color YELLOW (YELLOW) Urine Appearance HAZY (CLEAR) Urine pH 5.0 (5-6) Ur Specific [place] 1.015 (1.005-1.025) Urine Protein 30 (Negative) Urine Ketones NEGATIVE (NEGATIVE) Urine Blood 250 (0-5) Michael/ul Urine Nitrite NEGATIVE (NEGATIVE) Urine Bilirubin NEGATIVE (NEGATIVE) Urine Urobilinogen NORMAL (0-1) mg/dL Ur Leukocyte Esterase NEGATIVE (NEGATIVE) Urine Microscopic RBC 15-25 (0-2) /HPF Urine Bacteria MANY (NEGATIVE) /HPF Urine Culture Reflexed YES (NO) Urine Glucose NEGATIVE (NEGATIVE) mg/dL Specimen Received 12/26 220712/25/17 12/25/17 12/25/17 Range/Units 21:30 21:30 21:30 WBC (4.0-10.5) K/mm3 RBC (4.1-5.6) M/mm3 Hgb (12.5-18.0) gm/dl Hct (42-50) % MCV (78-100) fl MCH (26-32) pg MCHC (32-36) g/dl RDW (11.5-14.0) % Plt Count (150-450) K/mm3 MPV (6-9.5) fl Gran % (36.0-66.0) % Eos # (Auto) (0-0.5) Absolute Lymphs (auto) (1.0-4.6) Absolute Monos (auto) (0.0-1.3) Lymphocytes % (24.0-44.0) % Monocytes % (0.0-12.0) % Eosinophils % (0.00-5.0) % Basophils % (0.0-0.4) % Absolute Granulocytes (1.4-6.9) Basophils # (0-0.4) D-Dimer 425 (215-500) ng/mL pO2/FiO2 Ratio % VBG pH (7.32-7.42) VBG pCO2 at Pat Temp (42-55) mm/Hg VBG pO2 at Pat Temp (25-40) mm/Hg VBG HCO3 (22-28) meq/L VBG O2 Sat ([place]) (95-100) VBG Base Excess (-2.0-2.0) VBG Hemoglobin VBG Carboxyhemoglobin (0.0-6.9) % T HGB POC Potassium (3.5-5.1) Sodium 142 (137-145) mmol/L Potassium 4.4 (3.5-5.1) mmol/L Chloride 101 (98-107) mmol/L Carbon Dioxide 31 H (22-30) mmol/L Anion Gap 14.1 (5-15) MEQ/L BUN 34 H (9-20) mg/dL Creatinine 1.42 H (0.66-1.25) mg/dL Estimated GFR 54.2 ML/MIN Glucose 101 (74-106) mg/dL Lactic Acid 1.7 (0.4-2.0) Calcium 9.0 (8.4-10.2) mg/dL Total Bilirubin 0.90 (0.2-1.3) mg/dL AST 26 (17-59) U/L ALT 20 (0-50) U/L Alkaline Phosphatase 74 (38-126) U/L Creatine Kinase 223 H (55-170) U/L Troponin I (0.000-0.034) ng/mL NT-Pro-B Natriuret Pep 2160 H (0-900) pg/mL Serum Total Protein 7.1 (6.3-8.2) g/dL Albumin 3.9 (3.5-5.0) g/dL Amylase 49 (30-110) U/L Ur Collection Type Urine Color (YELLOW) Urine Appearance (CLEAR) Urine pH (5-6) Ur Specific [place] (1.005-1.025) Urine Protein (Negative) Urine Ketones (NEGATIVE) Urine Blood (0-5) Michael/ul Urine Nitrite (NEGATIVE) Urine Bilirubin (NEGATIVE) Urine Urobilinogen (0-1) mg/dL Ur Leukocyte Esterase (NEGATIVE) Urine Microscopic RBC (0-2) /HPF Urine Bacteria (NEGATIVE) /HPF Urine Culture Reflexed (NO) Urine Glucose (NEGATIVE) mg/dL Specimen Received 12/25/17 Range/Units 21:30 WBC 6.3 (4.0-10.5) K/mm3 RBC 4.83 (4.1-5.6) M/mm3 Hgb 14.8 (12.5-18.0) gm/dl Hct 46.5 (42-50) % MCV 96.3 (78-100) fl MCH 30.6 (26-32) pg MCHC 31.8 L (32-36) g/dl RDW 16.3 H (11.5-14.0) % Plt Count 141 L (150-450) K/mm3 MPV 11.0 H (6-9.5) fl Gran % 62.5 (36.0-66.0) % Eos # (Auto) 0.13 (0-0.5) Absolute Lymphs (auto) 1.31 (1.0-4.6) Absolute Monos (auto) 0.87 (0.0-1.3) Lymphocytes % 20.9 L (24.0-44.0) % Monocytes % 13.9 H (0.0-12.0) % Eosinophils % 2.1 (0.00-5.0) % Basophils % 0.6 (0.0-0.4) % Absolute Granulocytes 3.91 (1.4-6.9) Basophils # 0.04 (0-0.4) D-Dimer (215-500) ng/mL pO2/FiO2 Ratio % VBG pH (7.32-7.42) VBG pCO2 at Pat Temp (42-55) mm/Hg VBG pO2 at Pat Temp (25-40) mm/Hg VBG HCO3 (22-28) meq/L VBG O2 Sat ([place]) (95-100) VBG Base Excess (-2.0-2.0) VBG Hemoglobin VBG Carboxyhemoglobin (0.0-6.9) % T HGB POC Potassium (3.5-5.1) Sodium (137-145) mmol/L Potassium (3.5-5.1) mmol/L Chloride (98-107) mmol/L Carbon Dioxide (22-30) mmol/L Anion Gap (5-15) MEQ/L BUN (9-20) mg/dL Creatinine (0.66-1.25) mg/dL Estimated GFR ML/MIN Glucose (74-106) mg/dL Lactic Acid (0.4-2.0) Calcium (8.4-10.2) mg/dL Total Bilirubin (0.2-1.3) mg/dL AST (17-59) U/L ALT (0-50) U/L Alkaline Phosphatase (38-126) U/L Creatine Kinase (55-170) U/L Troponin I (0.000-0.034) ng/mL NT-Pro-B Natriuret Pep (0-900) pg/mL Serum Total Protein (6.3-8.2) g/dL Albumin (3.5-5.0) g/dL Amylase (30-110) U/L Ur Collection Type Urine Color (YELLOW) Urine Appearance (CLEAR) Urine pH (5-6) Ur Specific [place] (1.005-1.025) Urine Protein (Negative) Urine Ketones (NEGATIVE) Urine Blood (0-5) Michael/ul Urine Nitrite (NEGATIVE) Urine Bilirubin (NEGATIVE) Urine Urobilinogen (0-1) mg/dL Ur Leukocyte Esterase (NEGATIVE) Urine Microscopic RBC (0-2) /HPF Urine Bacteria (NEGATIVE) /HPF Urine Culture Reflexed (NO) Urine Glucose (NEGATIVE) mg/dL Specimen Received - Progress Progress: improved, re-examined Air Movement: good Progress Note: 12/25/17 23:[address] avila covering and no initial response so paged a second time pt is stabilizing but will need admission trop is detected but is same as DC 2 days ago. 12/25/17 23:[address] Avila again - no response yet - this will place pt out beyond the 4 hr dispo tarun. 12/26/17 00:[address] Avila and pt and all agree best to come in for admit and treatment; Blood Culture(s) Obtained: No Antibiotics given: No Discussed with : Alex Loomis Will see patient in: hospital (full admit) Counseled pt/family regarding: lab results, diagnosis, need for follow-up, rad results - Departure Time of Disposition: 00:08 Departure Disposition: In-patient Admission Clinical Impression: CHF (congestive heart failure), COPD (chronic obstructive pulmonary disease) Condition: Good Critical Care Time: No Referrals: MIHIR PALACIOS MD [Primary Care Provider] - Instructions: Heart Failure, Chronic Obstructive Pulmonary Disease
[2017-12-25] MEDS ORDERED: BUMEX 1 MG IV STA (21:14)
[2017-12-25] MEDS ORDERED: Sodium Chloride 0.9% 1000 ML 1,000 ML IV SCH (21:15)
[2017-12-25] MEDS ORDERED: BABY ASPIRIN 81 MG CHEW ONE (21:18)
[2017-12-25] MEDS ORDERED: Sodium Chloride 0.9% 1000 ML 1,000 ML ONE (21:19)
[2017-12-25] MEDS ORDERED: BUMEX 1 MG ONE (21:19)
[2017-12-25] MEDS ORDERED: MORPHINE SULFATE 2 MG INJ ONE (21:19)
[2017-12-25 21:36] LABS: BASOPHIL % 0.6 % (0.0-0.4); Basophil (Absolute #) 0.04 (0-0.4); Eosinophil % 2.1 % (0.00-5.0); Eosinophil (Absolute #) 0.13 (0-0.5); Granulocyte Absolute (ANC) 3.91 (1.4-6.9); Granulocytes % 62.5 % (36.0-66.0); Hematocrit 46.5 % (42-50); Hemoglobin 14.8 gm/dl (12.5-18.0); Lymphocyte (Absolute #) 1.31 (1.0-4.6); Lymphocytes % 20.9 % (24.0-44.0); Mean Cell Volume 96.3 fl (78-100); Mean Corpuscular Hemoglobin 30.6 pg (26-32); Mean Corpuscular Hgb Concent. 31.8 g/dl (32-36); Monocyte (Absolute #) 0.87 (0.0-1.3); Monocytes % 13.9 % (0.0-12.0); Platelet Count 141 K/mm3 (150-450); Red Blood Count 4.83 M/mm3 (4.1-5.6); Red Cell Distribution Width 16.3 % (11.5-14.0); White Blood Count 6.3 K/mm3 (4.0-10.5)
[2017-12-25 21:39] LABS: VBG CARBOXYHEMOGLOBIN 1.9 % T HGB (0.0-6.9); VBG HCO3- 33.2 meq/L (22-28); VBG HEMOGLOBIN 15.3; VBG O2 SATURATION 55.6 (95-100); VBG POTASSIUM 4.3 (3.5-5.1); VBG pH 7.33 (7.32-7.42)
[2017-12-25 22:09] LABS: ALBUMIN 3.9 g/dL (3.5-5.0); ANION GAP 14.1 MEQ/L (5-15); BILIRUBIN,TOTAL 0.9 mg/dL (0.2-1.3); Creatinine 1 1.42 mg/dL (0.66-1.25); Potassium 4.4 mmol/L (3.5-5.1); Total Protein 7.1 g/dL (6.3-8.2)
[2017-12-25 23:09] LABS: Appearance HAZY (CLEAR); Bilirubin NEGATIVE (NEGATIVE); Blood 250 Ery/ul (0-5); Glucose NEGATIVE (NEGATIVE); Ketones NEGATIVE (NEGATIVE); Leukocyte Esterase NEGATIVE (NEGATIVE); Nitrite NEGATIVE (NEGATIVE); Protein,Urine Dip 30 (Negative); Specific Gravity 1.015 (1.005-1.025); Urobilinogen NORMAL mg/dL (0-1)
[2017-12-25 23:10] LABS: Bacteria MANY /HPF (NEGATIVE); RBC 15-25 /HPF (0-2)
[2017-12-26] MEDS ORDERED: DUONEB 0.5-3 MG/3 ml Neb IH ONE (01:47)
[2017-12-26] MEDS ORDERED: KEFLEX 500 MG PO ONE (01:51)
[2017-12-26] MEDS: DUONEB 0.5-3 MG/3 ml Neb IH SCH ×4 (02:03→19:25)
[2017-12-26] MEDS ORDERED: Lopressor 25MG Tab ONE (02:15)
[2017-12-26] MEDS: XARELTO 10 MG TABLET PO SCH (02:17)
[2017-12-26] MEDS: Lopressor 50 MG PO SCH ×3 (02:21→22:02)
[2017-12-26] MEDS ORDERED: DUONEB 0.5-3 MG/3 ml Neb IH SCH (03:00)
[2017-12-26 05:58] LABS: Hematocrit 45.3 % (42-50); Hemoglobin 14.3 gm/dl (12.5-18.0); Mean Cell Volume 96.8 fl (78-100); Mean Corpuscular Hemoglobin 30.6 pg (26-32); Mean Corpuscular Hgb Concent. 31.6 g/dl (32-36); Mean Platelet Volume 10.9 fl (6-9.5); Platelet Count 136 K/mm3 (150-450); Red Blood Count 4.68 M/mm3 (4.1-5.6); Red Cell Distribution Width 16.5 % (11.5-14.0); White Blood Count 7.2 K/mm3 (4.0-10.5)
[2017-12-26 06:26] LABS: ANION GAP 11.8 MEQ/L (5-15); Calcium 8.7 mg/dL (8.4-10.2); Creatinine 1 1.49 mg/dL (0.66-1.25)
--- NOTE | 2017-12-26 08:04 | XRAY ---
Indication: CHF. Comparison: August 20, 2017. Portable apical lordotic chest again limited due to patient body habitus and new overlying external radiopacities including monitoring leads. Right costophrenic angle not included. No focal infiltrate, consolidation, or large effusion. Heart remains enlarged. Impression: Limited chest again demonstrating cardiomegaly. No gross new/acute findings.
--- NOTE | 2017-12-26 08:08 | XRAY ---
Indication: Scrotal swelling. Two-dimensional testicular sonogram performed. Comparison: None Sonogram technically difficult due to patient body habitus. Bilateral scrotal wall thickening. Right testicle measures 3.2 x 2.9 x 4.9 cm and the left measures 2.8 x 2.7 x 4.8 cm with normal color Doppler flow. Both epididymis enlarged, right measuring 3.2 x 1.0 x 3.6 cm and the left measuring 2.2 x 4.5 x 1.4 cm with hyperemic color Doppler flow favoring epididymitis. Small bilateral hydroceles presumed reactive. No suspicious extratesticular mass. Impression: 1. Enlarged epididymis with hyperemic color Doppler flow favoring epididymitis bilaterally. Small reactive bilateral hydroceles. 2. Negative testicular torsion. 3. Bilateral scrotal wall thickening. Comment: Preliminary report was given.
[2017-12-26] MEDS: KEFLEX 500 MG PO SCH ×2 (09:59→22:02)
[2017-12-26] MEDS ORDERED: Cozaar 50 MG PO SCH (10:00)
[2017-12-26] MEDS ORDERED: Toprol Xl 50 MG PO SCH (10:00)
[2017-12-26] MEDS ORDERED: BUMEX 1 MG IV SCH (10:00)
[2017-12-26] MEDS: BUMEX 1 MG IV SCH (18:06)
[2017-12-26] MEDS: Cozaar 50 MG PO SCH (22:02)
[2017-12-27] MEDS: DUONEB 0.5-3 MG/3 ml Neb IH SCH ×4 (00:48→19:31)
[2017-12-27] MEDS: BUMEX 1 MG IV SCH ×2 (05:44→17:54)
[2017-12-27 05:55] LABS: ALBUMIN 3.6 g/dL (3.5-5.0); ANION GAP 12.4 MEQ/L (5-15); BLOOD UREA NITROGEN 31 mg/dL (9-20); CHLORIDE 99 mmol/L (98-107); Calcium 8.5 mg/dL (8.4-10.2); Carbon Dioxide 29 mmol/L (22-30); Creatinine 1 1.18 mg/dL (0.66-1.25); Glucose 103 mg/dL (74-106); Potassium 4.3 mmol/L (3.5-5.1); SODIUM 136 mmol/L (137-145)
--- NOTE | 2017-12-27 08:48 | CONS ---
CONSULT DATE: 12/26/2017 BRIEF HISTORY: This is a 57 year-old male who was seen because of scrotal swelling, increased abdominal girth and generalized increase in his weight. The patient was in this hospital about a week ago and was admitted because of scrotal edema. He went home but came back because of significant scrotal swelling associated with shortness of breath and bilateral leg swelling. The patient has history of cardiomyopathy. Ejection fraction on last echocardiogram on 12/20/2017 showed ejection fraction of about 30 to 40%. The patient denies any chest pains. He states that he is not really short of breath but has some limited exercise capacity. He is morbidly obese. CARDIAC RISK FACTORS: Negative for diabetes. No hypertension. He does not smoke. No known hyperlipidemia. REVIEW OF SYSTEMS: FIELD NURSE CASE MANAGER: No history of stroke. No seizures. RESPIRATORY: He has chronic shortness of breath. GI: He denies any heartburn. : No significant dysuria or hematuria. PERIPHERAL VASCULAR: No history of deep venous thrombosis but there is chronic leg swelling. CURRENT MEDICATIONS: Albuterol inhaler, cephalexin, Bumex, losartan, metoprolol, Xarelto. PHYSICAL EXAMINATION: His blood pressure is 124/90 with heart rate of 106 in atrial fibrillation, respirations about 16. GENERAL: The patient is a middle aged male who is morbidly obese, alert, who is conversant. HEENT: Unremarkable. NECK: No carotid bruit. CHEST: The breath sounds are generally diminished. CARDIAC: Heart tones are distant. The rhythm is atrial fibrillation. ABDOMEN: Obese with normal bowel sounds. EXTREMITIES: There is bilateral leg edema. : He has a massive scrotal edema. LAB DATA AND DIAGNOSTIC TESTS: The EKG shows atrial fibrillation and right bundle branch block. The troponin I is less than 0.017. The creatinine is 1.4 with a glomerular filtration rate of 51. ProBNP 2,330. CBC showed hemoglobin 14.3, PLT 136,000. IMPRESSION: 1) In essence his scrotal edema is most likely secondary to volume overload. He has had some cardiomyopathy. Continue with IV diuretics. He will need some scrotal support and hygienic measures to prevent skin breakdown 2) Chronic atrial fibrillation. Continue with anticoagulation. 3) Cardiomyopathy. 4) Morbid obesity. 5) Pain involving his scrotal edema. I will follow up with you.
--- NOTE | 2017-12-27 09:05 | HP ---
HISTORY OF PRESENT ILLNESS: Kaz Alvarez is a 57 year old male with past medical history of hypertension, congestive heart failure, atrial fibrillation, chronic obstructive pulmonary disease, chronic hypoxemia, possible obstructive sleep apnea. He was recently admitted with symptoms of fluid overload. He underwent work up and treatment and improved clinically. At the patient's request he was discharged home in stable condition on 12/24/2017. Initially the patient had contacted me yesterday stating that he was having increasing swelling of his testicles and shortness of breath. I advised him to go to the emergency room. He presented to the [facility] Emergency Room yesterday evening with the same. Upon arrival he had reported increased shortness of breath, increased swelling of his testicles for more than a week. He was noted to have bilateral wheezing. Initial vitals in the emergency room were blood pressure 143/75, heart rate of 60, respiratory rate 24, temperature 97.6F. Oxygen saturation 87%. After initial work up he was treated with normal saline 1 liter, aspirin 324 mg p.o. x1, Bumex 2 mg IV x1, Cardizem 10 mg IV x1, morphine 2 mg IV x1. Subsequently he was admitted to medical floor for further monitoring and management. Reportedly earlier today while sitting doing something the patient fell with no reported injury as per patient and nursing staff. At the time of this evaluation the patient is sitting comfortably in chair, complains of shortness of breath and complains of swelling on his testicular area. He is somewhat better than yesterday. He denies any other complaints. PAST MEDICAL HISTORY: As noted above. The patient also has history of chronic renal insufficiency. PAST SURGICAL HISTORY: Umbilical hernia. ALLERGIES: PENICILLIN. MEDICATIONS: Current medications were reviewed. FAMILY HISTORY: Noncontributory. SOCIAL HISTORY: The patient is a former smoker. REVIEW OF SYSTEMS: Denies headache or dizziness. He complains of fatigue. He denies chest pain. Complains of shortness of breath. Denies palpitations. Complains of occasional dry cough. Denies abdominal pain, nausea or vomiting. Denies constipation or diarrhea. Denies urinary complaints. Complains of swelling of testicles. Complains of swelling of legs. He denies fever. PHYSICAL EXAMINATION: A morbidly obese male sitting comfortably in a chair, not in acute distress. VITAL SIGNS: Blood pressure 100/63, heart rate 75, respiratory rate 18, temperature 98.3F. Oxygen saturation 94% on room air. HEENT: No pallor or icterus is noted. NECK: No JVD is present. CVS: S1, S2 present. RESPIRATORY: Breath sounds are bilaterally diminished. ABDOMEN: Morbidly obese, soft, umbilical hernia present. NEURO: He is alert, oriented x3. EXTREMITIES: Reveals 2+ edema on bilateral lower extremities. : Erythematous testicles. LABORATORY DATA AND TESTS: EKG shows atrial fibrillation, right bundle branch block, nonspecific ST-T changes. Chest x-ray showed no gross/acute changes. Testicular ultrasound showed enlarged epididymis with hyperemic color Doppler flow favoring epididymitis bilaterally, negative testicular torsion, bilateral scrotal wall thickening. Initial labs were notable for CBC with PLT of 141,000. D-dimer was within normal limits. Venous blood gas showed pH of 7.33. Initial CMP showed BUN 34, creatinine 1.42, bicarbonate 31. NT-ProBNP 2160 and 2230. UA showed many bacteria, 15-25 red blood cells. Subsequent troponins have remained within normal limits. Today's CBC essentially unremarkable except PLT 136,000. BNP 2230. Urine culture is pending. ASSESSMENT: A 57 year old male with impression: 1) Congestive heart failure with decompensation. 2) Fluid overload. 3) Epididymitis. 4) Atrial fibrillation. 5) Chronic obstructive pulmonary disease. 6) Urinary tract infection. 7) Possible obstructive sleep apnea. 8) Renal insufficiency. 9) Morbid obesity. PLAN: Addition of IV diuretics. Addition of antibiotics. Continue to follow CBC, electrolytes. Cardiology and pulmonary consults have been requested. Fall precautions. The plan was discussed with the patient. He seems to be in understanding and agreement. Discussed with patient's nurse.
[2017-12-27] MEDS: Lopressor 50 MG PO SCH ×2 (09:40→22:23)
[2017-12-27] MEDS: Cozaar 50 MG PO SCH ×2 (09:40→22:23)
[2017-12-27] MEDS: XARELTO 10 MG TABLET PO SCH (09:40)
[2017-12-27] MEDS: KEFLEX 500 MG PO SCH ×2 (09:40→22:23)
[2017-12-27 10:25] LABS: Potassium 3.9 mmol/L (3.5-5.1)
[2017-12-27] MEDS: NovoLIN R SQ PRN ×2 (12:08→22:22)
--- NOTE | 2017-12-27 12:23 | PCM.HP ---
History of Present Illness - Chief Complaint Chief Complaint: CHF, Scrotal swelling, Pulm HTN, afib History of Present Illness: is a 57 year old male. - Review of Systems Constitutional: No Fever, No Chills Eyes: No Symptoms Ears, Nose, & Throat: No Symptoms Respiratory: Orthopnea, No Cough, No Short Of Breath Cardiac: No Chest Pain, No Edema, No Syncope Abdominal/Gastrointestinal: No Abdominal Pain, No Nausea, No Vomiting, No Diarrhea Genitourinary Symptoms: Testicle Pain, Other, No Dysuria Musculoskeletal: No Back Pain, No Neck Pain Skin: No Rash Neurological: No Dizziness, No Focal Weakness, No Sensory Changes Psychological: No Symptoms Endocrine: No Symptoms Hematologic/Lymphatic: No Symptoms Immunological/Allergic: No Symptoms Medications & Allergies Home Medications: Home Medication List Losartan Potassium 50 mg [Cozaar 50 MG] 50 mg PO BID 05/16/17 [History Confirmed 12/26/17] Metoprolol Tartrate 50 mg [Lopressor 50 MG] 62.5 mg PO BID 05/16/17 [ History Confirmed 12/26/17] Rivaroxaban 10 mg Tablet [Xarelto 10 mg Tablet] 20 mg PO 1800 05/16/17 [ History Confirmed 12/25/17] Albuterol 2.5 mg/3 ml Neb [Proventil 2.5 mg/3 ml Neb] 1 neb IH Q4HPRN PRN 12/20/17 [History Confirmed 12/25/17] Bumetanide 1 mg [Bumex 1 mg] 1 mg PO Q12H 7 Days #14 tablet 12/23/17 [Rx Confirmed 12/26/17] Cephalexin Mh 500 mg [Keflex 500 mg] 500 mg PO BID 12/25/17 [History Confirmed 12/26/17] Allergies/Adverse Reactions: Allergies Allergy/AdvReac Type Severity Reaction Status Date / Time Penicillins Allergy Verified 12/25/17 20:31 - Past Medical History Past Medical History: Yes Neurological History: Other ENT History: No Pertinent History Cardiac History: Arrhythmia, Congestive Heart Failure, Myocardial Infarction (MA ) Respiratory History: COPD Endocrine Medical History: No Pertinent History Musculoskelatal History: No Pertinent History GI Medical History: No Pertinent History History: No Pertinent History, Renal Disease Pyscho-Social History: No Pertinent History Male Reproductive Disorders: No Pertinent History Comment: umbilical hernia - Past Surgical History Past Surgical History: No Neuro Surgical History: No Pertinent History Cardiac History: No Pertinent History Respiratory Surgery: No Pertinent History GI Surgical History: No Pertinent History Genitourinary Surgical Hx: No Pertinent History Musculskeletal Surgical Hx: No Pertinent History Male Surgical History: No Pertinent History - Social History Smoking Status: Former smoker Exposure to second hand smoke: No Alcohol: None Drug Use: none - Physical Exam Vital Signs: Vital Signs - 24 hr Temp Pulse Resp BP Pulse Ox 12/27/17 07:25 97.7 F 88 20 111/58 92 L 12/27/17 07:05 85 20 90 L 12/27/17 04:00 97.5 F 90 22 118/57 94 L 12/27/17 00:48 102 H 18 97 12/27/17 00:00 97.9 F 109 H 16 124/58 100 12/26/17 19:48 98.2 F 102 H 20 131/72 97 12/26/17 19:25 102 H 20 97 12/26/17 15:45 98.3 F 84 18 104/70 95 12/26/17 13:38 76 18 95 Oxygen-Last 24 hours O2 Percentage 2 Liters = 28% O2 Percentage 2 Liters = 28% O2 Percentage 2 Liters = 28% General Appearance: no apparent distress, alert Neurologic Exam: alert, oriented x 3, cooperative, normal mood/affect, nml cerebellar function, nml station & gait, sensation nml, No motor deficits Eye Exam: PERRL/EOMI, eyes nml inspection Ears, Nose, Throat Exam: normal ENT inspection, TMs normal, pharynx normal, moist mucous membranes Neck Exam: normal inspection, non-tender, supple, full range of motion Respiratory Exam: normal breath sounds, lungs clear, No respiratory distress Cardiovascular Exam: regular rate/rhythm Gastrointestinal/Abdomen Exam: soft, normal bowel sounds, No tenderness, No mass Male Genitalia Exam: other (scrotal enlargement) Back Exam: normal inspection, normal range of motion, No CVA tenderness, No vertebral tenderness Extremity Exam: normal inspection, normal range of motion, pelvis stable Skin Exam: normal color, warm, dry, No rash Lymphatic Exam: No adenopathy Results - Labs Lab/Micro Results: Accuchecks Date 12/26/17 Date 12/26/17 Time 16:30 Accucheck Value: 116 Accucheck Value: 141 Accucheck Value: 127 Lab Results-Last 24 Hours 12/26/17 12/27/17 12/27/17 Range/Units 05:00 05:15 10:03 Sodium 136 L (137-145) mmol/L Potassium 4.3 3.9 (3.5-5.1) mmol/L Chloride 99 (98-107) mmol/L Carbon Dioxide 29 (22-30) mmol/L Anion Gap 12.4 (5-15) MEQ/L BUN 31 H (9-20) mg/dL Creatinine 1.18 (0.66-1.25) mg/dL Estimated GFR > 60.0 ML/MIN Glucose 103 (74-106) mg/dL Hemoglobin A1c 5.90 (4.5-6.0) % Calcium 8.5 (8.4-10.2) mg/dL Phosphorus 4.0 (2.5-4.5) mg/dL Magnesium 1.8 1.7 (1.6-2.3) mg/dL Albumin 3.6 (3.5-5.0) g/dL Microbiology 12/25/17 22:39 Urine Culture - Final Urine, Void <10K NORMAL SKIN YUSUF PROBABLE SKIN CONTAMINANT Accuchecks Date 12/26/17 Date 12/26/17 Time 16:30 Accucheck Value: 116 Accucheck Value: 141 Accucheck Value: 127 - Radiology Impressions Radiology Exams & Impressions: Radiology Procedures Category Date Time Status CHEST 1 VIEW (PORTABLE) Stat Exams 12/25/17 21:10 Completed TESTICLE [US] Stat Exams 12/25/17 21:13 Completed Assessment/Plan (1) CHF (congestive heart failure) Current Visit: Yes Status: Acute Onset Date: ~12/26/17 Qualifiers: Heart failure type: combined systolic and diastolic Heart failure chronicity: acute on chronic Qualified Code(s): I50.43 - Acute on chronic combined systolic (congestive) and diastolic (congestive) heart failure Code(s): I50.9 - HEART FAILURE, UNSPECIFIED (2) COPD (chronic obstructive pulmonary disease) Current Visit: Yes Status: Acute Qualifiers: (3) Cardiomyopathy Current Visit: Yes Status: Acute Onset Date: ~12/26/17 Qualifiers: Cardiomyopathy type: unspecified Qualified Code(s): I42.9 - Cardiomyopathy , unspecified Code(s): I42.9 - CARDIOMYOPATHY, UNSPECIFIED (4) Epididymitis Current Visit: Yes Status: Acute Onset Date: ~12/26/17 Code(s): N45.1 - EPIDIDYMITIS
[2017-12-27] MEDS: Levofloxacin 500MG/100ML D5W 500 MG/100 ML BAG IV SCH (13:31)
[2017-12-28] MEDS: DUONEB 0.5-3 MG/3 ml Neb IH SCH ×4 (01:12→17:36)
[2017-12-28 09:35] LABS: Hematocrit 46.3 % (42-50); Hemoglobin 14.5 gm/dl (12.5-18.0); Mean Cell Volume 96.9 fl (78-100); Mean Corpuscular Hemoglobin 30.3 pg (26-32); Mean Corpuscular Hgb Concent. 31.3 g/dl (32-36); Mean Platelet Volume 10.9 fl (6-9.5); Platelet Count 139 K/mm3 (150-450); Red Blood Count 4.78 M/mm3 (4.1-5.6); Red Cell Distribution Width 16.3 % (11.5-14.0); White Blood Count 6.2 K/mm3 (4.0-10.5)
[2017-12-28] MEDS: KEFLEX 500 MG PO SCH ×2 (09:48→21:33)
[2017-12-28] MEDS: Levofloxacin 500MG/100ML D5W 500 MG/100 ML BAG IV SCH (09:48)
[2017-12-28] MEDS: XARELTO 10 MG TABLET PO SCH (09:48)
[2017-12-28] MEDS: Sodium Chloride 0.9% 10 ML FLUSH Syringe IV SCH ×3 (09:48→21:33)
[2017-12-28] MEDS: Cozaar 50 MG PO SCH ×2 (09:49→21:33)
[2017-12-28] MEDS: Lopressor 50 MG PO SCH ×2 (09:49→21:33)
[2017-12-28 10:05] LABS: ANION GAP 13.9 MEQ/L (5-15); BLOOD UREA NITROGEN 28 mg/dL (9-20); CHLORIDE 96 mmol/L (98-107); Calcium 8.7 mg/dL (8.4-10.2); Carbon Dioxide 35 mmol/L (22-30); Glucose 164 mg/dL (74-106); Potassium 3.9 mmol/L (3.5-5.1); SODIUM 141 mmol/L (137-145)
--- NOTE | 2017-12-28 12:24 | PCM.NOTE ---
Date and Time: 12/28/17 1223 Subjective Assessment: doing ok - Review of Systems Constitutional: No Fever, No Chills Eyes: No Symptoms Ears, Nose, & Throat: No Symptoms Respiratory: No Cough, No Short Of Breath Cardiac: No Chest Pain, No Edema, No Syncope Abdominal/Gastrointestinal: No Abdominal Pain, No Nausea, No Vomiting, No Diarrhea Genitourinary Symptoms: No Dysuria Musculoskeletal: No Back Pain, No Neck Pain Skin: No Rash Neurological: No Dizziness, No Focal Weakness, No Sensory Changes Psychological: No Symptoms Endocrine: No Symptoms Hematologic/Lymphatic: No Symptoms Immunological/Allergic: No Symptoms Objective Exam General Appearance: no apparent distress, alert Neurologic Exam: alert, oriented x 3, cooperative, normal mood/affect, nml cerebellar function, sensation nml, No motor deficits Skin Exam: normal color, warm, dry Eye Exam: PERRL, EOMI, eyes nml inspection Ears, Nose, Throat Exam: normal ENT inspection, pharynx normal, moist mucous membranes Neck Exam: normal inspection, non-tender, supple, full range of motion Respiratory Exam: normal breath sounds, lungs clear, No respiratory distress Cardiovascular Exam: regular rate/rhythm, normal heart sounds Gastrointestinal/Abdomen Exam: soft, No tenderness, No mass Extremity Exam: normal inspection, normal range of motion Back Exam: normal inspection, normal range of motion, No CVA tenderness, No vertebral tenderness Male Genitalia Exam: deferred Rectal Exam: deferred OBJECTIVE DATA Vital Signs: Vital Signs - 24 hr Temp Pulse Resp BP Pulse Ox 12/28/17 11:48 97.8 F 98 H 20 128/59 97 12/28/17 07:47 98.4 F 95 H 20 116/59 90 L 12/28/17 06:43 97 H 20 90 L 12/28/17 04:00 98.0 F 93 H 24 104/72 96 12/28/17 01:19 86 18 97 12/28/17 00:05 98.3 F 96 H 20 111/72 100 12/27/17 21:55 104 H 20 93 L 12/27/17 20:00 98.7 F 124 H 22 110/65 98 12/27/17 16:06 97.8 F 96 H 22 114/58 94 L 12/27/17 13:22 94 H 24 95 Oxygen-Last 24 hours O2 Percentage 2 Liters = 28% O2 Percentage 2 Liters = 28% O2 Percentage 2 Liters = 28% O2 Percentage 2 Liters = 28% O2 Percentage 2 Liters = 28% Pain Assessment - Last Documented Pain Intensity 0 Pain Scale Used 0-10 Pain Scale Intake and Output: Intake & Output 12/26/17 12/27/17 12/28/17 12/29/17 11:59 11:59 11:59 11:59 Intake Total 880 8904 3100 Output Total 7488 8952 Balance 695 -8193 -6201 Weight 200 kg 199.9 kg 156.3 kg Lab Results: Accuchecks Date 12/27/17 Time 21:30 Accucheck Value: 177 Accucheck Value: 113 Lab Results-Last 24 Hours 12/28/17 12/28/17 Range/Units 09:03 09:37 WBC 6.2 (4.0-10.5) K/mm3 RBC 4.78 (4.1-5.6) M/mm3 Hgb 14.5 (12.5-18.0) gm/dl Hct 46.3 (42-50) % MCV 96.9 (78-100) fl MCH 30.3 (26-32) pg MCHC 31.3 L (32-36) g/dl RDW 16.3 H (11.5-14.0) % Plt Count 139 L (150-450) K/mm3 MPV 10.9 H (6-9.5) fl Sodium 141 (137-145) mmol/L Potassium 3.9 (3.5-5.1) mmol/L Chloride 96 L (98-107) mmol/L Carbon Dioxide 35 H (22-30) mmol/L Anion Gap 13.9 (5-15) MEQ/L BUN 28 H (9-20) mg/dL Creatinine 1.10 (0.66-1.25) mg/dL Estimated GFR > 60.0 ML/MIN Glucose 164 H (74-106) mg/dL Calcium 8.7 (8.4-10.2) mg/dL Assessment/Plan (1) CHF (congestive heart failure) Current Visit: Yes Status: Acute Onset Date: ~12/26/17 Qualifiers: Heart failure type: combined systolic and diastolic Heart failure chronicity: acute on chronic Qualified Code(s): I50.43 - Acute on chronic combined systolic (congestive) and diastolic (congestive) heart failure Code(s): I50.9 - HEART FAILURE, UNSPECIFIED (2) COPD (chronic obstructive pulmonary disease) Current Visit: Yes Status: Acute Qualifiers: (3) Cardiomyopathy Current Visit: Yes Status: Acute Onset Date: ~12/26/17 Qualifiers: Cardiomyopathy type: unspecified Qualified Code(s): I42.9 - Cardiomyopathy , unspecified Code(s): I42.9 - CARDIOMYOPATHY, UNSPECIFIED (4) Epididymitis Current Visit: Yes Status: Acute Onset Date: ~12/26/17 Code(s): N45.1 - EPIDIDYMITIS
[2017-12-28] MEDS: BUMEX 1 MG IV SCH (18:27)
[2017-12-29] MEDS: DUONEB 0.5-3 MG/3 ml Neb IH SCH ×4 (01:08→19:02)
[2017-12-29] MEDS: BUMEX 1 MG IV SCH ×3 (05:13→17:53)
[2017-12-29] MEDS: Sodium Chloride 0.9% 10 ML FLUSH Syringe IV SCH (05:14)
[2017-12-29] MEDS: Lopressor 50 MG PO SCH ×2 (09:53→22:09)
[2017-12-29] MEDS: XARELTO 10 MG TABLET PO SCH (09:53)
[2017-12-29] MEDS: KEFLEX 500 MG PO SCH ×2 (09:53→22:10)
[2017-12-29] MEDS: Cozaar 50 MG PO SCH ×2 (09:54→22:10)
[2017-12-29] MEDS: Levofloxacin 500MG/100ML D5W 500 MG/100 ML BAG IV SCH (09:54)
--- NOTE | 2017-12-29 12:21 | PCM.NOTE ---
Date and Time: 12/29/17 1221 Subjective Assessment: doing better - Review of Systems Constitutional: No Fever, No Chills Eyes: No Symptoms Ears, Nose, & Throat: No Symptoms Respiratory: No Cough, No Short Of Breath Cardiac: No Chest Pain, No Edema, No Syncope Abdominal/Gastrointestinal: No Abdominal Pain, No Nausea, No Vomiting, No Diarrhea Genitourinary Symptoms: No Dysuria Musculoskeletal: No Back Pain, No Neck Pain Skin: No Rash Neurological: No Dizziness, No Focal Weakness, No Sensory Changes Psychological: No Symptoms Endocrine: No Symptoms Hematologic/Lymphatic: No Symptoms Immunological/Allergic: No Symptoms Objective Exam General Appearance: no apparent distress, alert Neurologic Exam: alert, oriented x 3, cooperative, normal mood/affect, nml cerebellar function, sensation nml, No motor deficits Skin Exam: normal color, warm, dry Eye Exam: PERRL, EOMI, eyes nml inspection Ears, Nose, Throat Exam: normal ENT inspection, pharynx normal, moist mucous membranes Neck Exam: normal inspection, non-tender, supple, full range of motion Respiratory Exam: normal breath sounds, lungs clear, No respiratory distress Cardiovascular Exam: regular rate/rhythm, normal heart sounds Gastrointestinal/Abdomen Exam: soft, No tenderness, No mass Extremity Exam: normal inspection, normal range of motion Back Exam: normal inspection, normal range of motion, No CVA tenderness, No vertebral tenderness Male Genitalia Exam: deferred Rectal Exam: deferred OBJECTIVE DATA Vital Signs: Vital Signs - 24 hr Temp Pulse Resp BP Pulse Ox 12/29/17 12:00 98.0 F 102 H 20 110/62 94 L 12/29/17 07:45 98.4 F 87 20 112/58 93 L 12/29/17 07:00 68 22 98 12/29/17 04:00 98.1 F 73 24 115/62 96 12/29/17 01:09 87 23 98 12/29/17 00:00 97.1 F 89 24 85/53 97 12/28/17 20:00 97.7 F 102 H 24 111/79 96 12/28/17 17:37 82 22 99 12/28/17 16:00 98.1 F 102 H 20 142/83 98 12/28/17 12:58 88 20 Oxygen-Last 24 hours O2 Percentage 3 Liters = 32% O2 Percentage 3 Liters = 32% O2 Percentage 3 Liters = 32% O2 Percentage 2 Liters = 28% Pain Assessment - Last Documented Pain Intensity 0 Pain Scale Used 0-10 Pain Scale Intake and Output: Intake & Output 12/27/17 12/28/17 12/29/17 12/30/17 11:59 11:59 11:59 11:59 Intake Total 9852 3100 2240 Output Total 8537 3130 [id number] [facility] -[id number] -[id number] -7600 Weight 199.9 kg 156.3 kg 198.3 kg Lab Results: Accuchecks Date 12/28/17 Date 12/28/17 Time 22:00 Time 16:30 Accucheck Value: 94 Accucheck Value: 97 Accucheck Value: 82 Multi-Disciplinary Progress Notes: Multi-Disciplinary Progress Notes 12/28/17 12:35 (created 12/28/17 14:21) Case Management Note by Elma Smalls DR. ROUNDED AND EVALUATED, DISCUSSED TREATMENT WITH PT. QUESTIONS ANSWERED AT THIS TIME. DENIES ADDNL NEEDS AT PRESENT. DR. PALACIOS REPORTS THAT PT WILL LIKELY NEED FEW MORE DAYS OF TREATMENT, ALSO, WANT SURGERY TO CONSULT FOR SCROTAL EDEMA. PT VERBALIZED UNDERSTANDING TO ALL AND IN AGREEMENT. Initialized on 12/28/17 14:21 - END OF NOTE Assessment/Plan (1) CHF (congestive heart failure) Current Visit: Yes Status: Acute Onset Date: ~12/26/17 Qualifiers: Heart failure type: combined systolic and diastolic Heart failure chronicity: acute on chronic Qualified Code(s): I50.43 - Acute on chronic combined systolic (congestive) and diastolic (congestive) heart failure Code(s): I50.9 - HEART FAILURE, UNSPECIFIED (2) COPD (chronic obstructive pulmonary disease) Current Visit: Yes Status: Acute Qualifiers: (3) Cardiomyopathy Current Visit: Yes Status: Acute Onset Date: ~12/26/17 Qualifiers: Cardiomyopathy type: unspecified Qualified Code(s): I42.9 - Cardiomyopathy , unspecified Code(s): I42.9 - CARDIOMYOPATHY, UNSPECIFIED (4) Epididymitis Current Visit: Yes Status: Acute Onset Date: ~12/26/17 Code(s): N45.1 - EPIDIDYMITIS
[2017-12-30] MEDS: DUONEB 0.5-3 MG/3 ml Neb IH SCH ×3 (00:49→13:36)
[2017-12-30] MEDS ORDERED: DUONEB 0.5-3 MG/3 ml Neb IH ONE (05:43)
[2017-12-30] MEDS: BUMEX 1 MG IV SCH (06:15)
[2017-12-30] MEDS: Sodium Chloride 0.9% 10 ML FLUSH Syringe IV SCH (06:15)
[2017-12-30] MEDS: XARELTO 10 MG TABLET PO SCH (10:26)
[2017-12-30] MEDS: KEFLEX 500 MG PO SCH (10:27)
[2017-12-30] MEDS: Cozaar 50 MG PO SCH (10:28)
[2017-12-30] MEDS: Lopressor 50 MG PO SCH (10:28)
[2017-12-30] MEDS: Levofloxacin 500MG/100ML D5W 500 MG/100 ML BAG IV SCH (11:12)
--- NOTE | 2017-12-30 13:16 | PCM.DS ---
Discharge Summary Date of Admission: 12/26/17 01:10 Admitting Physician: KYA CAMPO Consults: Consults on Case 12/26/17 01:13 Consult Cardiology ROUTINE Consult Pulmonology 12/28/17 14:11 Consult Surgery ROUTINE Primary Care Provider: MIHIR PALACIOS Allergies Allergies Penicillins Allergy (Verified 12/25/17 20:31) Hospital Summary - Hospital Course Hospital Course: Chief Complaint Diagnosis CHF, Scrotal swelling, Pulm HTN, afib Allergies Allergy/AdvReac Type Severity Reaction Status Date / Time Penicillins Allergy Verified 12/25/17 20:31 Vital Signs (Last 24 hours) Temp Pulse Resp BP Pulse Ox 12/30/17 08:00 97.9 F 87 20 96/58 91 L 12/30/17 05:51 88 19 98 12/30/17 04:00 98.3 F 88 20 93/61 93 L 12/30/17 00:49 82 21 91 L 12/29/17 23:34 98.1 F 83 24 116/60 94 L 12/29/17 20:00 98.1 F 83 24 116/60 94 L 12/29/17 19:02 65 18 92 L 12/29/17 16:00 97.6 F 93 H 20 98/67 97 12/29/17 13:26 91 H 22 94 L Home Medications Medication Instructions Recorded Confirmed Last Taken Type Cephalexin Mh 500 mg [Keflex 500 500 mg PO BID 12/25/17 12/26/17 12/25/17 10: 00 History mg] Current Medications Generic Name Dose Route Start Last Admin Trade Name Kulwinderq PRN Reason Stop Dose Admin Albuterol/Ipratropium 3 ml 12/26/17 02:02 12/30/17 05:40 Duoneb 0.5-3 Mg/3 Ml Neb IH 01/25/18 00:59 3 ml Q6HRT CONY Administration Bumetanide 2 mg 12/26/17 18:00 12/30/17 06:15 Bumex 1 Mg IV 01/25/18 17:59 2 mg Q12H CONY Administration Cephalexin HCl 500 mg 12/26/17 10:00 12/30/17 10:27 Keflex 500 Mg PO 01/25/18 09:59 500 mg BID CONY Administration Levofloxacin/Dextrose 500 mg in 100 mls @ 100 mls/hr 12/27/17 13:00 12/30/17 11:12 Levofloxacin 500mg/100ml D5w IV 01/26/18 12:59 100 mls/hr Q24H10 CONY Administration Insulin Human Regular 0 unit 12/26/17 01:13 12/27/17 22:22 Novolin R SQ 01/25/18 01:12 3 unit UD PRN Administration HYPERGLYCEMIA Losartan Potassium 50 mg 12/26/17 22:00 12/30/17 10:28 Cozaar 50 Mg PO 01/25/18 21:59 Not Given BID CONY Metoprolol Tartrate 62.5 mg 12/26/17 10:00 12/30/17 10:28 Lopressor 50 Mg PO 01/25/18 09:59 Not Given BID CONY Rivaroxaban 20 mg 12/26/17 10:00 12/30/17 10:26 Xarelto 10 Mg Tablet PO 01/25/18 09:59 20 mg DAILY CONY Administration Sodium Chloride 10 ml 12/28/17 06:00 12/30/17 06:15 Sodium Chloride 0.9% 10 Ml Flush Syringe IV 01/27/18 05:59 10 ml Q8HT CONY Administration Discontinued Medications Generic Name Dose Route Start Last Admin Trade Name Freq PRN Reason Stop Dose Admin Albuterol/Ipratropium 3 ml 12/26/17 03:00 Duoneb 0.5-3 Mg/3 Ml Neb IH 01/25/18 02:59 Q4HRT OCNY Albuterol/Ipratropium Confirm 12/26/17 01:47 Duoneb 0.5-3 Mg/3 Ml Neb Administered 12/26/17 01:48 Dose 3 ml IH .STK-MED ONE Albuterol/Ipratropium Confirm 12/30/17 05:43 Duoneb 0.5-3 Mg/3 Ml Neb Administered 12/30/17 05:44 Dose 3 ml IH .STK-MED ONE Aspirin 324 mg 12/25/17 21:06 12/25/17 22:47 Baby Aspirin 81 Mg Chew PO 12/25/17 21:07 Not Given STAT ONE Aspirin Confirm 12/25/17 21:18 Baby Aspirin 81 Mg Chew Administered 12/25/17 21:19 Dose 324 mg .ROUTE .STK-MED ONE Bumetanide 2 mg 12/25/17 21:14 12/25/17 21:27 Bumex 1 Mg IV 12/25/17 21:15 2 mg STAT STA Administration Bumetanide Confirm 12/25/17 21:19 Bumex 1 Mg Administered 12/25/17 21:20 Dose 2 mg .ROUTE .STK-MED ONE Bumetanide 1 mg 12/26/17 10:00 12/26/17 09:59 Bumex 1 Mg IV 01/25/18 09:59 1 mg BID DIURETIC CONY Administration Cephalexin HCl 500 mg 12/26/17 01:51 12/26/17 02:17 Keflex 500 Mg PO 12/26/17 01:52 500 mg STAT ONE Administration Diltiazem HCl 10 mg 12/25/17 21:06 12/25/17 21:27 Cardizem Iv 50 Mg/10 Ml IV 12/25/17 21:07 10 mg STAT ONE Administration Diltiazem HCl Confirm 12/25/17 21:20 Cardizem Iv 50 Mg/10 Ml Administered 12/25/17 21:21 Dose 50 mg IV .STK-MED ONE Sodium Chloride 1,000 mls @ 50 mls/hr 12/25/17 21:15 12/25/17 21:28 Sodium Chloride 0.9% 1000 Ml IV 01/24/18 21:14 50 mls/hr .Q20H CONY Administration Sodium Chloride Confirm 12/25/17 21:19 Sodium Chloride 0.9% 1000 Ml Administered 12/25/17 21:20 Dose 1,000 mls @ ud .ROUTE .STK-MED ONE Losartan Potassium 50 mg 12/26/17 10:00 12/26/17 09:59 Cozaar 50 Mg PO 01/25/18 09:59 50 mg DAILY CONY Administration Metoprolol Succinate 62.5 mg 12/26/17 10:00 Toprol Xl 50 Mg PO 01/25/18 09:59 BID CONY Metoprolol Tartrate Confirm 12/26/17 02:15 Lopressor 25mg Tab Administered 12/26/17 02:16 Dose 25 mg .ROUTE .STK-MED ONE Morphine Sulfate 2 mg 12/25/17 21:06 12/25/17 21:28 Morphine Sulfate 2 Mg Inj IV 12/25/17 21:07 2 mg STAT ONE Administration Morphine Sulfate Confirm 12/25/17 21:19 Morphine Sulfate 2 Mg Inj Administered 12/25/17 21:20 Dose 2 mg .ROUTE .STK-MED ONE Intake & Output (Last 24 hours) 12/28/17 12/29/17 12/30/17 12/31/17 11:59 11:59 11:59 11:59 Intake Total 3100 2240 1180 Output Total 5050 3900 3555 Balance -1949 1659 -7117 Weight 156.3 kg 198.3 kg 198.3 kg Orders (Last 24 hours) Category Date Time Status Albuterol/Ipratropium 3ml Neb* [DUONEB 0.5-3 MG/3 ml Med 12/30/17 05:43 Discontinued Neb] 3 ml IH .STK-MED ONE Patient is doing better, will discharge patient home. - Vitals & Intake/Output Vital Signs: Vital Signs Temperature 97.9 F 12/30/17 08:00 Pulse Rate 87 12/30/17 08:00 Respiratory Rate 20 12/30/17 08:00 Blood Pressure 96/58 12/30/17 08:00 O2 Sat by Pulse Oximetry 91 L 12/30/17 08:00 Oxygen-Last Documented O2 Percentage 3 Liters = 32% Intake & Output: Intake & Output 12/28/17 12/29/17 12/30/17 12/31/17 11:59 11:59 11:59 11:59 Intake Total 3100 2240 1180 Output Total 5050 3900 3550 Balance -1949 166 -5994 Weight 156.3 kg 198.3 kg 198.3 kg - Lab Result Diagrams: 12/28/17 09:03 12/28/17 09:37 Lab Results-Last 24 Hrs: Accuchecks Date 12/29/17 Time 22:00 Accucheck Value: 104 Accucheck Value: 132 Accucheck Value: 109 Micro Results-Entire Visit: Microbiology 12/25/17 22:39 Urine Culture - Final Urine, Void <10K NORMAL SKIN YUSUF PROBABLE SKIN CONTAMINANT Accuchecks Date 12/29/17 Time 22:00 Accucheck Value: 104 Accucheck Value: 132 Accucheck Value: 109 - Procedures and Test Procedures and Tests throughout Hospitalization: Therapy Orders & Screens 12/26/17 01:13 Oxygen NASAL CANNULA 2 lpm Comment: Diagnosis: CHF 12/26/17 02:04 RT Screen per Nursing Assess ONCE Comment: Protocol Order Physician Instructions: Greater than 3 points order RT Admission Screen Reason For Exam: Triggered on Admission Diagnosis: CHF, Scrotal swelling, Pulm HTN, afib Diagnosis: CHF, Scrotal swelling, Pulm HTN, afib Pneumonia: No Home O2: Yes Asthma: No CHF: Yes Home CPAP/BIPAP: No Home Nebs/MDI: Yes Total Points: 13 12/26/17 02:06 Peak Expiratory Flow Rate ONCE Comment: Reason For Exam: Diagnosis: CHF, Scrotal swelling, Pulm HTN, afib 12/26/17 02:07 Respiratory Therapy Assessment DAILY Comment: Diagnosis: CHF, Scrotal swelling, Pulm HTN, afib 12/28/17 17:19 BiPap/CPAP ROUTINE Comment: 06/12 rate 14, FIO2+40% during sleep Diagnosis: CHF, Scrotal swelling, Pulm HTN, afib Discharge Exam General Appearance: no apparent distress, alert Neurologic Exam: alert, oriented x 3, cooperative, normal mood/affect, nml cerebellar function, sensation nml, No motor deficits Skin Exam: normal color, warm, dry Eye Exam: PERRL, EOMI, eyes nml inspection Ears, Nose, Throat Exam: normal ENT inspection, pharynx normal, moist mucous membranes Neck Exam: normal inspection, non-tender, supple, full range of motion Respiratory Exam: normal breath sounds, lungs clear, No respiratory distress Cardiovascular Exam: regular rate/rhythm, normal heart sounds Gastrointestinal/Abdomen Exam: soft, No tenderness, No mass Extremity Exam: normal inspection, normal range of motion Back Exam: normal inspection, normal range of motion, No CVA tenderness, No vertebral tenderness Male Genitalia Exam: deferred Rectal Exam: deferred Final Diagnosis/Problem List - Final Discharge Diagnosis/Problem (1) Epididymitis Current Visit: Yes Status: Acute Priority: High Onset Date: ~12/26/17 Assessment & Plan: improving (2) CHF (congestive heart failure) Current Visit: Yes Status: Acute Onset Date: ~12/26/17 (3) COPD (chronic obstructive pulmonary disease) Current Visit: Yes Status: Acute (4) Cardiomyopathy Current Visit: Yes Status: Acute Onset Date: ~12/26/17 - Discharge Discharge Date: 12/30/17 Disposition: Home, Self-Care Condition: Stable Prescriptions: New Ciprofloxacin [Cipro 500 MG] 500 mg PO BID #20 tablet Continue Rivaroxaban 10 mg Tablet [Xarelto 10 mg Tablet] 20 mg PO 1800 Metoprolol Tartrate 50 mg [Lopressor 50 MG] 62.5 mg PO BID Losartan Potassium 50 mg [Cozaar 50 MG] 50 mg PO BID Albuterol 2.5 mg/3 ml Neb [Proventil 2.5 mg/3 ml Neb] 1 neb IH Q4HPRN PRN PRN Reason: Shortness Of Breath/Wheezing Bumetanide 1 mg [Bumex 1 mg] 1 mg PO Q12H 7 Days #14 tablet Cephalexin Mh 500 mg [Keflex 500 mg] 500 mg PO BID Follow up with: EJ CAMPO [ACTIVE STAFF] - 01/05/18 9:45 am ([facility]) YEIMI SOLOMON [ACTIVE STAFF] - 1 Week MIHIR PALACIOS MD [Primary Care Provider] - 12/30/17 2:30 pm (at [facility])
[2017-12-30 13:23] VITALS: BP 136/59
[2017-12-30 13:47] VITALS: PULSE 102; O2SAT 95
== END 2017-12-30 15:19 | disposition home or self-care (01) ==
LOC: ED 19:55 → MED SURG 12-26 01:10 → INTOOBSV 12-26 01:10
PROVIDERS: ADMIT General Practice; ATTEND General Practice
DX: N45.1 Epididymitis (principal); I50.43 Acute on chronic combined systolic (congestive) and diastolic (congestive) heart failure; I50.84 End stage heart failure; J44.9 Chronic obstructive pulmonary disease, unspecified; I42.9 Cardiomyopathy, unspecified; I10 Essential (primary) hypertension; I48.2 Chronic atrial fibrillation; G47.33 Obstructive sleep apnea (adult) (pediatric); N28.9 Disorder of kidney and ureter, unspecified; E66.01 Morbid (severe) obesity due to excess calories; I27.20 Pulmonary hypertension, unspecified; N50.89 Other specified disorders of the male genital organs; Z79.01 Long term (current) use of anticoagulants; Z79.899 Other long term (current) drug therapy; I25.2 Old myocardial infarction; I27.81 Cor pulmonale (chronic)
CPT/HCPCS: 36000; 36415; 71045; 76870; 80048; 80053; 80069; 81000; 82150; 82550; 82805; 82962; 83036; 83605; 83735; 83880; 84132; 84484; 85025; 85027; 85379; 87086; 93005; 93041; 93268; 94003; 94150; 94640; 94760; 96360; 96361; 96374; 96375; 99285; J1956; J2270; A9270-GY; G0378

== ENCOUNTER 2018-01-13 19:45 | Emergency (ER) | payer OTHER ==
--- NOTE | 2018-01-13 20:02 | ERPHSYRPT ---
- History of Present Illness Time Seen by Provider: 01/13/18 20:01 Source: patient, family Exam Limitations: no limitations Physician History: 57 y/o white male presents with abscess upper midline back. pt is not diabetic. pt had a fever and noticed drainage and tenderness upper back. pt had been treated with keflex for a different type of infection. Timing/Duration: day(s) (enlarging over several days) Quality: painful Severity: moderate Location: other (upper mid back) Possible Causes: other (sebaceous cyst) Associated Symptoms: fever, swelling/mass/lumps Allergies/Adverse Reactions: Penicillins Allergy (Verified 12/25/17 20:31) Home Medications: Losartan Potassium 50 mg [Cozaar 50 MG] 50 mg PO BID 05/16/17 [History] Metoprolol Tartrate 50 mg [Lopressor 50 MG] 62.5 mg PO BID 05/16/17 [ History] Rivaroxaban 10 mg Tablet [Xarelto 10 mg Tablet] 20 mg PO 1800 05/16/17 [ History] Albuterol 2.5 mg/3 ml Neb [Proventil 2.5 mg/3 ml Neb] 1 neb IH Q4HPRN PRN 12/20/17 [History] Hx Tetanus, Diphtheria Vaccination/Date Given: Yes Hx Influenza Vaccination/Date Given: No Hx Pneumococcal Vaccination/Date Given: No - Review of Systems Constitutional: Fever Eyes: No Symptoms, No Discharge, No Eye Pain Ears, Nose, & Throat: No Symptoms, No Ear Pain, No Ear Discharge Respiratory: No Symptoms, No Cough, No Dyspnea, No Stridor, No Wheezing Cardiac: No Symptoms, No Chest Pain, No Palpitations, No Syncope Abdominal/Gastrointestinal: No Symptoms, No Abdominal Pain, No Nausea, No Vomiting, No Diarrhea Genitourinary Symptoms: No Symptoms, No Dysuria, No Frequency, No Hematuria Musculoskeletal: No Symptoms Skin: Other (abscess upper mid back) Neurological: No Symptoms Psychological: No Symptoms Endocrine: No Symptoms Hematologic/Lymphatic: No Symptoms Immunological/Allergic: No Symptoms - Past Medical History Pertinent Past Medical History: Yes Neurological History: Other ENT History: No Pertinent History Cardiac History: Arrhythmia, Congestive Heart Failure, Myocardial Infarction ([place] ) Respiratory History: COPD Endocrine Medical History: No Pertinent History Musculoskeletal History: No Pertinent History GI Medical History: No Pertinent History History: No Pertinent History, Renal Disease Psycho-Social History: No Pertinent History Male Reproductive Disorders: No Pertinent History Other Medical History: umbilical hernia - Past Surgical History Past Surgical History: No Neuro Surgical History: No Pertinent History Cardiac: No Pertinent History Respiratory: No Pertinent History Gastrointestinal: No Pertinent History Genitourinary: No Pertinent History Musculoskeletal: No Pertinent History Male Surgical History: No Pertinent History - Social History Smoking Status: Former smoker Exposure to second hand smoke: No Drug Use: none Patient Lives Alone: No - Nursing Vital Signs Nursing Vital Signs: Initial Vital Signs Temperature 101.6 F 01/13/18 19:46 Pulse Rate 75 01/13/18 19:46 Respiratory Rate 22 01/13/18 19:46 Blood Pressure 118/99 01/13/18 19:46 O2 Sat by Pulse Oximetry 100 01/13/18 19:46 - Physical Exam General Appearance: no apparent distress Eye Exam: PERRL/EOMI, No eyes nml inspection Ears, Nose, Throat Exam: normal ENT inspection Neck Exam: normal inspection, non-tender, supple, full range of motion Respiratory Exam: normal breath sounds, lungs clear, airway intact, No chest tenderness, No respiratory distress, No accessory muscle use, No rhonchi, No wheezing, No stridor Cardiovascular Exam: regular rate/rhythm, normal heart sounds, normal peripheral pulses Gastrointestinal/Abdomen Exam: soft, No tenderness Rectal Exam: not done Back Exam: other ([id number] upper mid back abscess with expressible pus, redness and odor) Extremity Exam: normal inspection, normal range of motion, pelvis stable Neurologic Exam: alert, oriented x 3, cooperative, 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 two 4x4 gauze packed into wound. mod pus and sebaceous cyst removed) Results: moderate amount pus - Course Nursing assessment & vital signs reviewed: Yes Ordered Tests: Active Orders 24 hr Category Date Time Status CULTURE,WOUND Stat Lab 01/13/18 20:54 Ordered Medication Summary Discontinued Medications Generic Name Dose Route Start Last Admin Trade Name Freq PRSatish Reason Stop Dose Admin Acetaminophen Confirm 01/13/18 21:03 Tylenol 325 Mg Administered 01/13/18 21:04 Dose 650 mg .ROUTE .STK-MED ONE Ceftriaxone Sodium 1,000 mg 01/13/18 20:37 01/13/18 20:49 Rocephin 1000 Mg Inj IM 01/13/18 20:38 1,000 mg STAT ONE Administration Ceftriaxone Sodium Confirm 01/13/18 20:44 Rocephin 1000 Mg Inj Administered 01/13/18 20:45 Dose 1,000 mg .ROUTE .STK-MED ONE Ibuprofen Confirm 01/13/18 21:03 Motrin 400 Mg Administered 01/13/18 21:04 Dose 400 mg .ROUTE .STK-MED ONE Trimethoprim/Sulfamethoxazole 1 tab 01/13/18 20:37 01/13/18 20:49 Bactrim Ds Tablet PO 01/13/18 20:38 1 tab STAT STA Administration Trimethoprim/Sulfamethoxazole Confirm 01/13/18 20:44 Bactrim Ds Tablet Administered 01/13/18 20:45 Dose 1 tab PO .STK-MED ONE - Progress Progress: improved, re-examined Progress Note: 01/13/18 21:31 pt maddie procedure well. pain resolved after procedure. patient declined narcotic med rx for home Counseled pt/family regarding: diagnosis, need for follow-up - Departure Time of Disposition: 21:28 Departure Disposition: Home Clinical Impression: Back abscess Condition: Stable Critical Care Time: No Referrals: MIHIR PALACIOS MD [Primary Care Provider] - Additional Instructions: keep current dressing and packing in place until tomorrow morning. remove BOTH gauze packing and shower with soap and water. 2 times daily. pack two times daily with packing gauze from pharmacy. cover with nonstick bandage. follow up with your primary doctor on tuesday to arrange a wound check. take medications as prescribed. use tylenol and ibuprofen for pain Prescriptions: Smz/Tmp Ds Tablet [Bactrim Ds Tablet] 1 udtab PO BID #14 tablet
[2018-01-13 20:11] VITALS: PULSE 75; O2SAT 100
[2018-01-13] MEDS ORDERED: Rocephin 1000 MG INJ IM ONE (20:37)
[2018-01-13] MEDS ORDERED: BACTRIM DS TABLET PO STA (20:37)
[2018-01-13] MEDS ORDERED: BACTRIM DS TABLET PO ONE (20:44)
[2018-01-13] MEDS ORDERED: Rocephin 1000 MG INJ ONE (20:44)
[2018-01-13 20:57] VITALS: BP 123/76
[2018-01-13] MEDS ORDERED: MOTRIN 400 MG ONE (21:03)
[2018-01-13] MEDS ORDERED: TYLENOL 325 MG ONE (21:03)
[2018-01-13] MEDS ORDERED: TYLENOL 325 MG PO STA (21:20)
[2018-01-13] MEDS ORDERED: MOTRIN 400 MG PO ONE (21:21)
== END 2018-01-13 22:11 | disposition home or self-care (01) ==
LOC: ED 19:45
PROC: 0H96XZZ Drainage of Back Skin, External Approach (ICD-10-PCS; principal; 2018-01-13)
DX: L02.212 Cutaneous abscess of back [any part, except buttock and flank] (principal); Z79.899 Other long term (current) drug therapy
CPT/HCPCS: 10060; 87070; 87077; 96372; 99284; J0696; A9270-GY

== ENCOUNTER 2018-03-22 21:00 | Emergency (ER) | payer SELFPAY ==
[2018-03-22] MEDS ORDERED: Sodium Chloride 0.9% 1000 ML 1,000 ML IV ONE (21:04)
[2018-03-22] MEDS ORDERED: EPINEPHRINE ABBOJECT 1 MG IV ONE (21:04)
[2018-03-22] MEDS ORDERED: Sodium Chloride 0.9% 1000 ML 1,000 ML ONE (21:10)
--- NOTE | 2018-03-22 23:02 | ERPHSYRPT ---
- History of Present Illness Time Seen by Provider: 03/22/18 21:00 Source: EMS Exam Limitations: clinical condition Physician History: 57 y/o morbidly obese male with h/o chf and copd presents in respiratory failure and code arrest. pt came directly from home. EMS arrived at home with pt in a tripod position on his couch purple, mottled and struggling to breathe. pt transferred to EMS transport beds and pt suddenly became apneic and unresponsive. pt arrives without iv/io access, unresponsive, apneic, no palpable pulse, no spontaneous heart tones, fixed and dilated pupils. EMS was bagging pt with bag valve mask with oropharyngeal mask. Timing/Duration: day(s) (3), worse Activities at Onset: none Quality: other (severe air hunger) Severity of Pain-Max: none (pt unresponsive) Severity of Pain-Current: none (pt unresponsive) Modifying Factors: Improves With: lying down (worsened pt) Nitro Today/Relief: no nitro taken today Aspirin Treatment Today: no aspirin today Associated Symptoms: shortness of breath, other (facial and generalized mottling ) Prior Chest Pain/Cardiac Workup: no prior chest pain Allergies/Adverse Reactions: Penicillins Allergy (Verified 12/25/17 20:31) Home Medications: Losartan Potassium 50 mg [Cozaar 50 MG] 50 mg PO BID 05/16/17 [History] Metoprolol Tartrate 50 mg [Lopressor 50 MG] 62.5 mg PO BID 05/16/17 [ History] Rivaroxaban 10 mg Tablet [Xarelto 10 mg Tablet] 20 mg PO 1800 05/16/17 [ History] Albuterol 2.5 mg/3 ml Neb [Proventil 2.5 mg/3 ml Neb] 1 neb IH Q4HPRN PRN 12/20/17 [History] Hx Tetanus, Diphtheria Vaccination/Date Given: Yes Hx Influenza Vaccination/Date Given: No Hx Pneumococcal Vaccination/Date Given: No - Review of Systems Constitutional: Other (pt unresponsive) Eyes: No Symptoms Ears, Nose, & Throat: No Symptoms Respiratory: Other (respiratory distress severe) Abdominal/Gastrointestinal: Other (pt unresponsive) Skin: Other (generalized mottling) Neurological: Other (unresponsive) Psychological: Other (unresponsive) All Other Systems: Reviewed and Negative - Past Medical History Pertinent Past Medical History: Yes Neurological History: Other ENT History: No Pertinent History Cardiac History: Arrhythmia, Congestive Heart Failure, Myocardial Infarction ([place] ) Respiratory History: COPD Endocrine Medical History: No Pertinent History Musculoskeletal History: No Pertinent History GI Medical History: No Pertinent History History: No Pertinent History, Renal Disease Psycho-Social History: No Pertinent History Male Reproductive Disorders: No Pertinent History Other Medical History: umbilical hernia - Past Surgical History Past Surgical History: No Neuro Surgical History: No Pertinent History Cardiac: No Pertinent History Respiratory: No Pertinent History Gastrointestinal: No Pertinent History Genitourinary: No Pertinent History Musculoskeletal: No Pertinent History Male Surgical History: No Pertinent History - Social History Smoking Status: Former smoker Exposure to second hand smoke: No Drug Use: none Patient Lives Alone: No - Physical Exam General Appearance: obese, other (unresponsive) Eye Exam: other (bilat pupils fixed and dilated) Ears, Nose, Throat Exam: moist mucous membranes Respiratory Exam: respiratory distress (severe), other (no spontaneous breath sound) Cardiovascular Exam: other (no palpable) Gastrointestinal/Abdomen Exam: soft, other (obese) Rectal Exam: not done Extremity Exam: pedal edema, other (mottling) Skin Exam: other (mottled) SpO2 Interpretation: hypoxic, airway management int. Oxygen Delivery: Ventilator Procedures - Intubation Intubation Indications: respiratory arrest, airway protection Intubation Method: orotracheal, curved blade, glidescope Tube Size (cm): 8.0 Endotracheal Tube Confirmation: bilateral breath sounds, positive end tidal CO2 , good rise & fall of chest Intubation Complications: no complications Performed By: ED Physician Post Intubation Xray: No - Course Nursing assessment & vital signs reviewed: Yes Ordered Tests: Active Orders 24 hr Category Date Time Status Intubate Patient STAT RT 03/22/18 21:00 Completed Standby STAT RT 03/22/18 22:45 Completed Medication Summary Discontinued Medications Generic Name Dose Route Start Last Admin Trade Name Freq PRN Reason Stop Dose Admin Sodium Chloride Confirm 03/22/18 21:10 Sodium Chloride 0.9% 1000 Ml Administered 03/22/18 21:11 Dose 1,000 mls @ ud .ROUTE .STK-MED ONE - Progress Progress: re-examined Air Movement: poor Progress Note: 03/22/18 23:12 pt arrived in respiratory arrest and unresponsive. cpr began immediately. pt orotracheally intubated with glidescope. 6 rounds of cpr including 6 rounds of epinephrine did not improve or change pts condtion. i spoke with family regarding pts refracctory condition to tx and intervention. after 30minutes of cpr pts family made him dnr. upon return to pt, there was quivering of sternum and pt took a couple of deep agonal breaths. pt was in PEA rhythm. however, ? faint palp pulse present. we opted for a single defibrillator at 200 J. no change in pts status. cpr called at 2127. pts hr gradually dropped 30s to 20s then asystole. Blood Culture(s) Obtained: No Antibiotics given: No Discussed with Dr.: Palacios (at 2139. dr. palacios discussed with pts mother.) Counseled pt/family regarding: diagnosis - Departure Time of Disposition: 21:28 Departure Disposition: Clinical Impression: Respiratory arrest, PEA (Pulseless electrical activity) Condition: Critical Care Time: Yes Critical Care Time(excluding separately billable procedures): 30-74 minutes Referrals: MIHIR PALACIOS MD [Primary Care Provider] -
== END 2018-03-23 07:58 | disposition expired ==
LOC: ED 21:00
DX: R09.2 Respiratory arrest (principal); Z79.899 Other long term (current) drug therapy
CPT/HCPCS: 31500; 94799; 99284; 99291; J0171